=== PATIENT | male | born 1955 | race Caucasian/White ===

== ENCOUNTER 2017-02-05 09:34 | Inpatient (IN) | payer OTHER ==
[2017-02-05] VITALS (14 sets, daily range): BP systolic 131–145; BP diastolic 85–97; PULSE 63–91; RESP 12–23; TEMP 98.1–98.4; O2SAT 96–100
[~2017-02-05] VITALS: Ht 175.3 cm; Wt 68.7 kg
[2017-02-05] MEDS ORDERED: BUPR150XL PO (09:55)
--- NOTE | 2017-02-05 09:59 | PD ---
HPI Chief Complaint: Cardiac Complaint Time Seen by Provider: 09:44 Travel History International Travel<30 days: No Contact w/Intl Traveler<30days: No Traveled to known affect area: No History of Present Illness HPI This patient is critically ill. He woke up this morning feeling okay but then developed left upper chest pain and pressure. It lasted about 2 hours. Paramedics were called. They found him pale and diaphoretic and bradycardic in the 40s. Shortly thereafter he went into ventricular fibrillation. They shocked him at 120 J and he converted to a sinus rhythm. He did not require any further shocks. He arrives in a sinus rhythm. Symptoms are severe. Duration 2 hours. Arrhythmia alleviated by electricity. No exacerbating factors. He is a cigarette smoker. He denies cardiac history. PFSH Past Medical History Depression: Yes Heart Rhythm Problems: Yes Diminished Hearing: No Past Surgical History Surgical History: No Previous Surgery Social History Alcohol Use: Yes (1-2 mixed drinks/night) Tobacco Use: Yes (1 ppd) Substance Use: No Allergies-Medications (Allergen,Severity, Reaction): Coded Allergies: No Known Allergies (Unverified , 02/05/17) Reported Meds & Prescriptions Reported Meds & Active Scripts Active Reported Wellbutrin Xl 24 HR (Bupropion HCl) 150 Mg Tab 150 Mg PO DAILY Review of Systems General / Constitutional: No: Fever Eyes: No: Visual changes HENT: No: Headaches Cardiovascular: Positive: Chest Pain or Discomfort, Irregular Rhythm, Tachycardia, Syncope Respiratory: No: Shortness of Breath Gastrointestinal: No: Abdominal Pain Genitourinary: No: Dysuria Musculoskeletal: No: Pain Skin: No Rash Neurologic: Positive: Syncope, No: Weakness Psychiatric: No: Depression Endocrine: No: Polydipsia Hematologic/Lymphatic: No: Easy Bruising Physical Exam Narrative GENERAL: Well-nourished, well-developed patient in no apparent distress. SKIN: Focused skin assessment reveals no rash and nodules. Skin is Warm and dry. HEAD: Atraumatic. Normocephalic. EYES: Pupils equal and round. No scleral icterus. No injection or drainage. ENT: No nasal bleeding or discharge. Mucous membranes pink and moist. NECK: Trachea midline. No JVD. CARDIOVASCULAR: Regular rate and rhythm. No murmur appreciated. RESPIRATORY: No accessory muscle use. Clear to auscultation. Breath sounds equal bilaterally. GASTROINTESTINAL: Abdomen soft, non-tender, nondistended. Hepatic and splenic margins not palpable. MUSCULOSKELETAL: No obvious deformities. No clubbing. No cyanosis. No edema. NEUROLOGICAL: Awake and alert. No obvious cranial nerve deficits. Motor grossly within normal limits. Normal speech. PSYCHIATRIC: Appropriate mood and affect; insight and judgment normal. Data Data Last Documented VS Vital Signs Date Time Temp Pulse Resp B/P (MAP) Pulse Ox O2 Delivery O2 Flow Rate FiO2 02/05/17 11:45 74 12 132/85 (101) 100 Nasal Cannula 2.00 02/05/17 09:41 98.1 Orders Orders Electrocardiogram (02/05/17 09:47) Basic Metabolic Panel (Bmp) (02/05/17 09:47) Ckmb (Isoenzyme) Profile (02/05/17 09:47) Complete Blood Count With Diff (02/05/17 09:47) Magnesium (Mg) (02/05/17 09:47) Prothrombin Time / Inr (Pt) (02/05/17 09:47) Act Partial Throm Time (Ptt) (02/05/17 09:47) Troponin I (02/05/17 09:47) Chest, Single Ap (02/05/17 09:47) Ecg Monitoring (02/05/17 09:47) Iv Access Insert/Monitor (02/05/17 09:47) Oximetry (02/05/17 09:47) Oxygen Administration (02/05/17 09:47) Aspirin (Aspirin) (02/05/17 10:00) Sodium Chloride 0.9% Flush (Ns Flush) (02/05/17 10:00) Heparin Inj (Heparin Inj) (02/05/17 16:00) Heparin Inj (Heparin Inj) (02/05/17 16:00) Heparin-D5w 25,000 U/250 Ml (Heparin-D5w (02/05/17 10:00) Cbc No Diff, Includes Plts (02/08/17 06:00) Act Partial Throm Time (Ptt) (02/05/17 16:47) Occult Blood (Hemoccult) Stool (02/05/17 09:47) (Hub Use Only)Inp Phy Cons/Ref (02/05/17 ) Act Partial Throm Time (Ptt) (02/05/17 16:40) CKMB (02/05/17 09:46) CKMB% (02/05/17 09:46) Admit Order (Ed Use Only) (02/05/17 12:08) Admit Order (Ed Use Only) (02/05/17 12:19) Labs Laboratory Tests Test 02/05/17 09:46 White Blood Count 8.8 TH/MM3 Red Blood Count 4.69 MIL/MM3 Hemoglobin 16.8 GM/DL Hematocrit 48.9 % Mean Corpuscular Volume 104.2 FL Mean Corpuscular Hemoglobin 35.7 PG Mean Corpuscular Hemoglobin Concent 34.3 % Red Cell Distribution Width 13.6 % Platelet Count 134 TH/MM3 Mean Platelet Volume 9.3 FL Neutrophils (%) (Auto) 31.9 % Lymphocytes (%) (Auto) 57.6 % Monocytes (%) (Auto) 8.6 % Eosinophils (%) (Auto) 1.4 % Basophils (%) (Auto) 0.5 % Neutrophils # (Auto) 2.8 TH/MM3 Lymphocytes # (Auto) 5.1 TH/MM3 Monocytes # (Auto) 0.8 TH/MM3 Eosinophils # (Auto) 0.1 TH/MM3 Basophils # (Auto) 0.0 TH/MM3 CBC Comment AUTO DIFF Differential Comment AUTO DIFF CONFIRMED Platelet Estimate LOW Platelet Morphology Comment NORMAL Prothrombin Time 10.0 SEC Prothromb Time International Ratio 1.0 RATIO Activated Partial Thromboplast Time 23.2 SEC Blood Urea Nitrogen 13 MG/DL Creatinine 1.44 MG/DL Random Glucose 235 MG/DL Calcium Level 9.2 MG/DL Magnesium Level 2.2 MG/DL Sodium Level 139 MEQ/L Potassium Level 3.6 MEQ/L Chloride Level 103 MEQ/L Carbon Dioxide Level 22.0 MEQ/L Anion Gap 14 MEQ/L Estimat Glomerular Filtration Rate 50 ML/MIN Total Creatine Kinase 149 U/L Creatine Kinase MB 1.2 NG/ML Troponin I LESS THAN 0.02 NG/ML MDM Medical Decision Making Medical Screen Exam Complete: Yes Emergency Medical Condition: Yes Medical Record Reviewed: Yes Differential Diagnosis Acute FL, arrhythmia, V. fib, ischemic coronary disease Narrative Course I have reviewed the patient's electronic medical record. Patient is never been here before. No EKGs to compare. 2 IVs placed I placed him on a satellite project site monitor and he is in a sinus rhythm with a rare ectopic beat. No acute ST elevation on EKG which shows sinus rhythm Workup initiated I discussed with diamond finishing supervisor Dr. hensley. He does not recommend antiarrhythmics at this time. He recommends aspirin and heparin drip both of which we have initiated. I reviewed the EKG shows sinus rhythm without ectopy I reviewed the chest x-ray is normal Extended cardiac monitoring shows sinus rhythm with a rare ectopic beat CBC is normal Metabolic profile is normal other than mild hyperglycemia CK is normal Troponin is normal Coagulation studies are normal Case reviewed with hospitalist will admit to PSYCHIATRIC with cardiology consultation on heparin drip Critical Care Narrative Aggregate critical care time was 35 minutes. Time to perform other separately billable procedures was not included in the critical care time. My time did not include minutes spent treating any other patients simultaneously or on activities that did not directly contribute to the patient's treatment. The services I provided to this patient were to treat and/or prevent clinically significant deterioration that could result in: Cardiac arrhythmia, myocardial damage, cardiopulmonary arrest I provided critical care services requiring my management, as noted below: Chart data review, documentation time, medication orders and management, vital sign assessments/reviewing monitor data, ordering and reviewing lab tests, ordering and interpreting/reviewing x-rays and diagnostic studies, care of the patient and discussion of the patient with the admitting physicians. Diagnosis Primary Impression: Cardiac arrest with ventricular fibrillation Additional Impression: Chest pain Qualified Codes: R07.9 - Chest pain, unspecified Admitting Information Admitting Physician Requests: Evens Quinonez MD Feb 05, 2017 09:59
[2017-02-05] MEDS ORDERED: ASPIRIN 325 MG TAB PO ONE (10:00)
[2017-02-05] MEDS ORDERED: SODIUM CHLORIDE 0.9% FLUSH 10 ML FLUSH IVF PRN (10:00)
--- NOTE | 2017-02-05 10:20 | PD.CONS ---
HPI Consult Requested By Primary Care Physician Unknown History of Present Illness 61-year-old male with a past medical history depression who presented with chest pain and V. fib status post defibrillation in the field today. The patient states that he woke up this morning feeling well and had some coffee. He then developed some left back and left anterior chest pain. The pain was severe and lasted for a few hours. He reports associated shortness of breath, nausea, and sweating. Paramedics were called and they found the patient pale, diaphoretic, and bradycardic in the 40s. Shortly thereafter he went into V. fib and he received defibrillation with conversion to sinus rhythm. EKG and telemetry monitoring showed sinus rhythm with occasional PACs, no acute ischemic changes. The patient does admit that he's been having episodes of left -sided chest pain with no associated symptoms, lasting for a few minutes, however he does ride a bike for exercise and has not had any previous exertional symptoms. He denies any history of heart disease. He denies any family history of heart disease. He does smoke and drink daily. Review of Systems Negative except as stated in history of present illness Past Family Social History Allergies: Coded Allergies: No Known Allergies (Unverified , 02/05/17) Past Medical History Depression Reported Medications Reported Meds & Active Scripts Active Reported Wellbutrin Xl 24 HR (Bupropion HCl) 150 Mg Tab 150 Mg PO DAILY Active Ordered Medications Current Medications Medications (Trade) Dose Ordered Sig/Davon Route Start Time Stop Time Status Last Admin (NS Flush) 2 ml UNSCH PRN IVF 02/05/17 10:00 (Heparin Inj) 5,000 units UNSCH PRN IV 02/05/17 16:00 (Heparin Inj) 2,500 units UNSCH PRN IV 02/05/17 16:00 Heparin Sodium/ Dextrose 250 ml @ 8 mls/hr TITRATE PRN IV 02/05/17 10:00 Family History Denies family history of heart disease Social History Tobacco abuse Drinks one to 2 alcoholic beverages daily Denies any drug use Physical Exam Vital Signs Vital Signs Date Time Temp Pulse Resp B/P (MAP) Pulse Ox O2 Delivery O2 Flow Rate FiO2 02/05/17 10:05 100 Nasal Cannula 2.00 02/05/17 09:41 98.1 82 23 131/97 (108) 100 Non-Rebreather 15.00 Physical Exam GENERAL: Well-developed well-nourished. In no acute distress. NECK: No carotid bruits. No JVD. CARDIOVASCULAR: Regular rate and rhythm with occasional PACs. No murmur appreciated. RESPIRATORY: No accessory muscle use. Clear to auscultation. Breath sounds equal bilaterally. MUSCULOSKELETAL: No clubbing or cyanosis. No edema. NEUROLOGICAL: Awake and alert. Normal speech. Assessment and Plan Assessment and Plan 61-year-old male with a past medical history depression who presented with chest pain and V. fib status post defibrillation in the field Chest pain: Patient is currently stable. EKG with no ischemic changes. Troponins are pending. We'll pursue ischemic evaluation with cardiac catheterization, likely Tuesday. Continue heparin. V. fib s/p defibrillation: Currently sinus. Likely ischemic driven, hold off on antiarrhythmics at this time. Lonnie Torres Feb 05, 2017 10:20
--- NOTE | 2017-02-05 10:20 | RADRPT ---
EXAM DATE/TIME: 02/05/2017 10:10 [facility] COMPARISON: No previous studies available for comparison. INDICATIONS : Chest pain. MEDICAL HISTORY : Smoker. SURGICAL HISTORY : None. ENCOUNTER: Initial ACUITY: 1 day PAIN SCORE: 9/10 LOCATION: Left chest FINDINGS: A single view of the chest demonstrates the lungs to be symmetrically aerated without evidence of mas s, infiltrate or effusion. The cardiomediastinal contours are unremarkable. Osseous structures are intact. CONCLUSION: 1. No acute cardiopulmonary disease. Tony Gallo MD on February 05, 2017 at 10:18 Board Certified Radiologist. This report was verified electronically.
[2017-02-05 10:23] LABS: AUTOMATED NEUTROPHIL # 2.8 TH/MM3 (1.8-7.7); BASOPHIL % 0.5 % (0.0-2.0); EOSINOPHIL # 0.1 TH/MM3 (0-0.4); EOSINOPHIL % 1.4 % (0.0-4.0); HEMATOCRIT 48.9 % (39.0-51.0); LYMPH % 57.6 % (9.0-44.0); LYMPHOCYTE # 5.1 TH/MM3 (1.0-4.8); MEAN CELL VOLUME 104.2 FL (80.0-100.0); MEAN CORPUSCULAR HEMOGLOBIN 35.7 PG (27.0-34.0); MEAN CORPUSCULAR HGB CONC 34.3 % (32.0-36.0); MONO % 8.6 % (0.0-8.0); NEUT % 31.9 % (16.0-70.0); PLATELET COUNT 134 TH/MM3 (150-450); RED BLOOD COUNT 4.69 MIL/MM3 (4.50-5.90); RED CELL DISTRIBUTION WIDTH 13.6 % (11.6-17.2); WHITE BLOOD COUNT 8.8 TH/MM3 (4.0-11.0)
[2017-02-05 10:24] LABS: HEMO FLAGS AUTO DIFF
[2017-02-05 10:32] LABS: APTT (PATIENT) 23.2 SEC (24.3-30.1)
[2017-02-05] MEDS: HEPARIN-D5W 25,000 U/250 ML 250 ML IV PRN (10:35)
[2017-02-05 10:40] LABS: ANION GAP 14 MEQ/L (5-15); BLOOD UREA NITROGEN 13 MG/DL (7-18); CHLORIDE 103 MEQ/L (98-107); GLOMERULAR FILTRATION RATE 50 ML/MIN (>89); MAGNESIUM 2.2 MG/DL (1.5-2.5); POTASSIUM 3.6 MEQ/L (3.5-5.1); SODIUM (NA) 139 MEQ/L (136-145)
[2017-02-05 10:43] LABS: CREATINE KINASE 149 U/L (39-308)
[2017-02-05 10:46] LABS: PLATELET ESTIMATE SMEAR LOW (NORMAL); PLATELET MORPHOLOGY NORMAL (NORMAL); SCAN/DIFF AUTO DIFF CONFIRMED
[2017-02-05 10:56] LABS: CKMB 1.2 NG/ML (0.5-3.6)
--- NOTE | 2017-02-05 11:56 | HHI.HP ---
[facility] Unknown Admission Diagnosis Diagnoses: Chief Complaint: chest pain Travel History International Travel<30 Days: No Contact w/Intl Traveler <30 Da: No Traveled to Known Affected Are: No History of Present Illness 61-year-old male with a past medical history depression/anxiety who presented with chest pain and V. fib status post defibrillation in the field today. The patient states that he woke up this morning feeling well and had some coffee. He then developed some left back and left anterior chest pain. The pain was severe and lasted for a few hours. He reports associated shortness of breath, nausea, and sweating. Paramedics were called and they found the patient pale, diaphoretic, and bradycardic in the 40s. Shortly thereafter he went into V. fib and he received defibrillation with conversion to sinus rhythm. EKG and telemetry monitoring showed sinus rhythm with occasional PACs, no acute ischemic changes. The patient does admit that he's been having episodes of left -sided chest pain with no associated symptoms, lasting for a few minutes, however he does ride a bike for exercise and has not had any previous exertional symptoms. He denies any history of heart disease. He denies any family history of heart disease. He does smoke and drink daily. Patient also reports neck pain and muscle tenderness, asking for muscle relaxant. He is still having chest harvey however improved since he came to ER. No feve ro chills.No cough. No n/v/d/c. Says she has associated nausea and diaphoresis in the morning when chest pain started. First episode. Symptoms are moderate to severe and came to ER for further evaluation. Review of Systems Except as stated in HPI: all other systems reviewed are Neg Past Family Social History Past Medical History Depression Past Surgical History None Reported Medications Last Impressions Chest X-Ray 02/05/17 5804 Signed Impressions: Service Date/Time: Tuesday, February 05, 2017 10:10 - CONCLUSION: 1. No acute cardiopulmonary disease. Tony Gallo MD Allergies: Coded Allergies: No Known Allergies (Unverified , 02/05/17) Family History Healthy , no family history of heart disease Social History Tobacco abuse Drinks one to 2 alcoholic beverages daily Denies any drug use Physical Exam Vital Signs Vital Signs Date Time Temp Pulse Resp B/P (MAP) Pulse Ox O2 Delivery O2 Flow Rate FiO2 02/05/17 11:45 74 12 132/85 (101) 100 Nasal Cannula 2.00 02/05/17 10:05 100 Nasal Cannula 2.00 02/05/17 09:41 98.1 82 23 131/97 (108) 100 Non-Rebreather 15.00 Physical Exam GENERAL: This is a well-nourished, well-developed patient, in no apparent distress. SKIN: No rashes, ecchymoses or lesions. Cool and dry. HEAD: Atraumatic. Normocephalic. No temporal or scalp tenderness. EYES: Pupils equal round and reactive. Extraocular motions intact. No scleral icterus. No injection or drainage. ENT: Nose without bleeding, purulent drainage or septal hematoma. Throat without erythema, tonsillar hypertrophy or exudate. Uvula midline. Airway patent. NECK: Trachea midline. No JVD or lymphadenopathy. Supple, nontender, no meningeal signs. CARDIOVASCULAR: Regular rate and rhythm without murmurs, gallops, or rubs. RESPIRATORY: Clear to auscultation. Breath sounds equal bilaterally. No wheezes , rales, or rhonchi. GASTROINTESTINAL: Abdomen soft, non-tender, nondistended. No hepato-splenomegaly , or palpable masses. No guarding. MUSCULOSKELETAL: Tender neck muscle and shoulder. Extremities without clubbing, cyanosis, or edema. No joint tenderness, effusion, or edema noted. No calf tenderness. Negative Homans sign bilaterally. NEUROLOGICAL: Awake and alert. Cranial nerves II through XII intact. Motor and sensory grossly within normal limits. Five out of 5 muscle strength in all muscle groups. Normal speech. Laboratory Laboratory Tests Test 02/05/17 09:46 White Blood Count 8.8 Red Blood Count 4.69 Hemoglobin 16.8 Hematocrit 48.9 Mean Corpuscular Volume 104.2 Mean Corpuscular Hemoglobin 35.7 Mean Corpuscular Hemoglobin Concent 34.3 Red Cell Distribution Width 13.6 Platelet Count 134 Mean Platelet Volume 9.3 Neutrophils (%) (Auto) 31.9 Lymphocytes (%) (Auto) 57.6 Monocytes (%) (Auto) 8.6 Eosinophils (%) (Auto) 1.4 Basophils (%) (Auto) 0.5 Neutrophils # (Auto) 2.8 Lymphocytes # (Auto) 5.1 Monocytes # (Auto) 0.8 Eosinophils # (Auto) 0.1 Basophils # (Auto) 0.0 CBC Comment AUTO DIFF Differential Comment AUTO DIFF CONFIRMED Platelet Estimate LOW Platelet Morphology Comment NORMAL Prothrombin Time 10.0 Prothromb Time International Ratio 1.0 Activated Partial Thromboplast Time 23.2 Blood Urea Nitrogen 13 Creatinine 1.44 Random Glucose 235 Calcium Level 9.2 Magnesium Level 2.2 Sodium Level 139 Potassium Level 3.6 Chloride Level 103 Carbon Dioxide Level 22.0 Anion Gap 14 Estimat Glomerular Filtration Rate 50 Total Creatine Kinase 149 Creatine Kinase MB 1.2 Troponin I LESS THAN 0.02 Result Diagram: 02/05/1746 02/05/1746 Imaging Last Impressions Chest X-Ray 02/05/17 0947 Signed Impressions: Service Date/Time: Sunday, February 05, 2017 10:10 - CONCLUSION: 1. No acute cardiopulmonary disease. MD Cinthya Gomez VTE Risk Assessment Caprini VTE Risk Assessment: Mod/High Risk (score >= 2) Caprini Risk Assessment Model Point Value = 1 Point Value = 2 Point Value = 3 Point Value = 5 Age 41-60 Minor surgery BMI > 25 kg/m2 Swollen legs Varicose veins or History of unexplained or recurrent spontaneous Oral contraceptives or hormone replacement Sepsis (< 1 month) Serious lung disease, including pneumonia (< 1 month) Abnormal pulmonary function Acute myocardial infarction Congestive heart failure (< 1 month) History of inflammatory bowel disease Medical patient at bed rest Age 61-74 Arthroscopic surgery Major open surgery (> 45 min) Laparoscopic surgery (> 45 min) Malignancy Confined to bed (> 72 hours) Immobilizing plaster cast Central venous access Age >= 75 History of VTE Family history of VTE Factor V Leiden Prothrombin [id number] Lupus anticoagulant Anticardiolipin antibodies Elevated serum homocysteine Heparin-induced thrombocytopenia Other congenital or acquired thrombophilia Stroke (< 1 month) Elective arthroplasty Hip, pelvis, or leg fracture Acute spinal cord injury (< 1 month) Prophylaxis Regimen Total Risk Factor Score Risk Level Prophylaxis Regimen 0-1 Low Early ambulation 2 Moderate Order ONE of the following: *Sequential Compression Device (SCD) *Heparin 5000 units SQ BID 3-4 Higher Order ONE of the following medications: *Heparin 5000 units SQ TID *Enoxaparin/Lovenox 40 mg SQ daily (WT < 150 kg, CrCl > 30 mL/min) *Enoxaparin/Lovenox 30 mg SQ daily (WT < 150 kg, CrCl > 10-29 mL/min) *Enoxaparin/Lovenox 30 mg SQ BID (WT < 150 kg, CrCl > 30 mL/min) AND/OR *Sequential Compression Device (SCD) 5 or more Highest Order ONE of the following medications: *Heparin 5000 units SQ TID (Preferred with Epidurals) *Enoxaparin/Lovenox 40 mg SQ daily (WT < 150 kg, CrCl > 30 mL/min) *Enoxaparin/Lovenox 30 mg SQ daily (WT < 150 kg, CrCl > 10-29 mL/min) *Enoxaparin/Lovenox 30 mg SQ BID (WT < 150 kg, CrCl > 30 mL/min) AND *Sequential Compression Device (SCD) Assessment and Plan Assessment and Plan 61-year-old male with a past medical history depression who presented with chest pain and V. fib status post defibrillation in the field Chest pain: Patient is currently stable. EKG with no ischemic changes. Troponins normal x1 . Trend trops. . We'll pursue ischemic evaluation with cardiac catheterization, likely Tuesday per cardiology. Start heparin drip. Start morphine IV O2 supplement if need keep O2 sat > 94% V. fib s/p defibrillation: Currently sinus. Likely ischemic driven, hold off on antiarrhythmics at this time. Muscle spasm: Flexeril prn Depression/anxiety: Restart home meds. Give xanax prn for anxiety DVT ppx SCD/TEDs on heparin drip Code Status Full code Discussed Condition With Patient, nurse, ED physician Dr Saldana Physician Certification 2 Midnight Certification Type: Admission for Inpatient Services Order for Inpatient Services The services are ordered in accordance with Medicare regulations or non- Medicare payer requirements, as applicable. In the case of services not specified as inpatient-only, they are appropriately provided as inpatient services in accordance with the 2-midnight benchmark. Estimated LOS (days): 3 days is the estimated time the patient will need to remain in the hospital, assuming treatment plan goals are met and no additional complications. Post-Hospital Plan: Home Francy Lees MD Feb 05, 2017 11:56
[2017-02-05] MEDS ORDERED: SENNOSIDES 8.6 MG TAB PO PRN (13:00)
[2017-02-05] MEDS ORDERED: BISACODYL 10 MG SUPP RECTAL PRN (13:00)
[2017-02-05] MEDS ORDERED: ONDANSETRON HCL 4 MG/2 ML VIAL IVP PRN (13:00)
[2017-02-05] MEDS ORDERED: MAGNESIUM HYDROXIDE SUSP 30 ML CUP PO PRN (13:00)
[2017-02-05] MEDS ORDERED: NALOXONE HCL 0.4 MG/ML AMP IV PUSH PRN (13:00)
[2017-02-05] MEDS ORDERED: TEMAZEPAM 15 MG CAP PO PRN (13:00)
[2017-02-05] MEDS ORDERED: LACTULOSE SYRUP 20 GM/30 ML CUP PO PRN (13:00)
[2017-02-05] MEDS ORDERED: SODIUM CHLORIDE 0.9% FLUSH 10 ML FLUSH IV FLUSH PRN (13:00)
[2017-02-05] MEDS ORDERED: ACETAMINOPHEN 325 MG TAB PO PRN (13:00)
[2017-02-05] MEDS ORDERED: PILL SPLITTER OTHER PRN (13:15)
[2017-02-05] MEDS: CYCLOBENZAPRINE HCL 10 MG TAB PO PRN ×2 (15:46→23:35)
[2017-02-05] MEDS ORDERED: HEPARIN SODIUM - IV 10,000 UNITS/10 ML VIAL IV PRN ×2 (16:00)
[2017-02-05 18:27] LABS: APTT (PATIENT) 24.9 SEC (24.3-30.1)
[2017-02-05] MEDS: DOCUSATE SODIUM 50 MG/SENNA 8.6 MG TAB PO SCH (19:28)
[2017-02-05] MEDS: SODIUM CHLORIDE 0.9% FLUSH 10 ML FLUSH IV FLUSH SCH (19:28)
[2017-02-05] MEDS: ALPRAZolam 0.25 MG TAB PO PRN (19:30)
[2017-02-06] VITALS (24 sets, daily range): BP systolic 116–123; BP diastolic 68–88; PULSE 60–98; RESP 16–20; TEMP 97.6–98.3; O2SAT 96–98
[2017-02-06 00:44] LABS: APTT (PATIENT) 26.8 SEC (24.3-30.1)
[2017-02-06 06:29] LABS: AUTOMATED NEUTROPHIL # 4.5 TH/MM3 (1.8-7.7); BASOPHIL % 0.3 % (0.0-2.0); EOSINOPHIL # 0.2 TH/MM3 (0-0.4); EOSINOPHIL % 2.2 % (0.0-4.0); HEMATOCRIT 46.4 % (39.0-51.0); HEMO FLAGS DIFF FINAL; LYMPH % 31.9 % (9.0-44.0); LYMPHOCYTE # 2.7 TH/MM3 (1.0-4.8); MEAN CORPUSCULAR HEMOGLOBIN 35.8 PG (27.0-34.0); MEAN CORPUSCULAR HGB CONC 34.5 % (32.0-36.0); MONO % 11.3 % (0.0-8.0); NEUT % 54.3 % (16.0-70.0); PLATELET COUNT 144 TH/MM3 (150-450); RED BLOOD COUNT 4.46 MIL/MM3 (4.50-5.90); RED CELL DISTRIBUTION WIDTH 13.4 % (11.6-17.2); WHITE BLOOD COUNT 8.3 TH/MM3 (4.0-11.0)
[2017-02-06 06:45] LABS: APTT (PATIENT) 49.5 SEC (24.3-30.1)
[2017-02-06 07:03] LABS: ALT (GPT) 32 U/L (12-78); ANION GAP 7 MEQ/L (5-15); AST (GOT) 41 U/L (15-37); BLOOD UREA NITROGEN 13 MG/DL (7-18); CHLORIDE 104 MEQ/L (98-107); GLOMERULAR FILTRATION RATE 68 ML/MIN (>89); SODIUM (NA) 141 MEQ/L (136-145)
[2017-02-06 07:04] LABS: ALKALINE PHOSPHATASE 61 U/L (45-117); TOTAL BILIRUBIN ADULT 1.1 MG/DL (0.2-1.0)
[2017-02-06] MEDS: SODIUM CHLORIDE 0.9% FLUSH 10 ML FLUSH IV FLUSH SCH ×2 (08:50→19:39)
[2017-02-06] MEDS: ASPIRIN 325 MG TAB PO SCH (08:50)
[2017-02-06] MEDS: DOCUSATE SODIUM 50 MG/SENNA 8.6 MG TAB PO SCH ×2 (08:50→19:39)
[2017-02-06] MEDS: CYCLOBENZAPRINE HCL 10 MG TAB PO PRN ×2 (08:50→17:09)
[2017-02-06] MEDS: HEPARIN-D5W 25,000 U/250 ML 250 ML IV PRN (08:57)
--- NOTE | 2017-02-06 09:06 | PD.CARD.PN ---
Subjective Subjective Remarks Patient states that he has constant chest pain, except whenever he does not move , pain exacerbated by turning to his sides. No shortness of breath or palpitations. (Lonnie Torres) Objective Medications Current Medications Medications (Trade) Dose Ordered Sig/Davon Route Start Time Stop Time Status Last Admin (Heparin Inj) 5,000 units UNSCH PRN IV 02/05/17 16:00 02/05/17 21:22 (Heparin Inj) 2,500 units UNSCH PRN IV 02/05/17 16:00 02/06/17 01:32 Heparin Sodium/ Dextrose 250 ml @ 8 mls/hr TITRATE PRN IV 02/05/17 10:00 02/06/17 08:57 (NS Flush) 2 ml UNSCH PRN IV FLUSH 02/05/17 13:00 (NS Flush) 2 ml BID IV FLUSH 02/05/17 21:00 02/05/17 19:28 (Tylenol) 650 mg Q4H PRN PO 02/05/17 13:00 (Zofran Inj) 4 mg Q6H PRN IVP 02/05/17 13:00 (Restoril) 15 mg HS PRN PO 02/05/17 13:00 (Narcan Inj) 0.4 mg UNSCH PRN IV PUSH 02/05/17 13:00 (Ilana-Colace) 1 tab BID PO 02/05/17 21:00 02/06/17 08:50 (Milk Of Magnesia Liq) 30 ml Q12H PRN PO 02/05/17 13:00 (Senokot) 17.2 mg Q12H PRN PO 02/05/17 13:00 (Dulcolax Supp) 10 mg DAILY PRN RECTAL 02/05/17 13:00 (Lactulose Liq) 30 ml DAILY PRN PO 02/05/17 13:00 (Aspirin) 325 mg DAILY PO 02/06/17 09:00 02/06/17 08:50 (Morphine Inj) 2 mg Q4H PRN IV PUSH 02/05/17 13:00 (Flexeril) 5 mg Q8H PRN PO 02/05/17 13:00 02/06/17 08:50 (Xanax) 0.25 mg Q8H PRN PO 02/05/17 13:00 02/05/17 19:30 (Pill Splitter) 1 ea UNSCH PRN OTHER 02/05/17 13:15 Vital Signs / I&O Vital Signs Date Time Temp Pulse Resp B/P (MAP) Pulse Ox O2 Delivery O2 Flow Rate FiO2 02/06/17 08:16 75 02/06/17 07:37 Room Air 02/06/17 07:37 97.7 80 16 118/80 (93) 96 02/06/17 07:03 74 02/06/17 06:00 65 02/06/17 05:00 62 02/06/17 04:00 61 02/06/17 04:00 98.3 61 18 121/80 (94) 97 02/06/17 04:00 Room Air 02/06/17 03:00 60 02/06/17 02:00 63 02/06/17 01:00 73 02/06/17 00:00 Room Air 02/06/17 00:00 74 02/06/17 00:00 98.1 74 18 123/88 (100) 96 02/05/17 23:00 69 02/05/17 22:00 68 02/05/17 21:00 70 02/05/17 20:00 98.4 63 20 131/88 (102) 96 02/05/17 20:00 Room Air 02/05/17 20:00 63 02/05/17 18:35 84 02/05/17 17:08 77 02/05/17 16:25 90 02/05/17 16:23 91 02/05/17 15:33 02/05/17 15:33 98.2 74 16 145/97 (113) 97 02/05/17 15:19 72 02/05/17 15:06 78 19 134/88 (103) 100 Room Air 02/05/17 13:04 100 Nasal Cannula 2.50 02/05/17 11:45 74 12 132/85 (101) 100 Nasal Cannula 2.00 02/05/17 10:05 100 Nasal Cannula 2.00 02/05/17 09:41 98.1 82 23 131/97 (108) 100 Non-Rebreather 15.00 I/O 02/05/17 02/05/17 02/05/17 02/06/17 02/06/17 02/06/17 07:00 15:00 23:00 07:00 15:00 23:00 Intake Total 358 ml 580 ml Output Total 700 ml Balance 358 ml -120 ml Intake Oral 358 ml 480 ml IV Total 100 ml Output Urine Total 700 ml # Bowel Movements 0 Physical Exam GENERAL: Well-developed well-nourished. In no acute distress. NECK: No carotid bruits. No JVD. CARDIOVASCULAR: Regular rate and rhythm. No murmur appreciated. RESPIRATORY: No accessory muscle use. Clear to auscultation. Breath sounds equal bilaterally. MUSCULOSKELETAL: No clubbing or cyanosis. No edema. NEUROLOGICAL: Awake and alert. Normal speech. Laboratory Laboratory Tests Test 02/05/17 09:46 02/05/17 17:28 02/05/17 18:10 02/05/17 23:50 White Blood Count 8.8 TH/MM3 Red Blood Count 4.69 MIL/MM3 Hemoglobin 16.8 GM/DL Hematocrit 48.9 % Mean Corpuscular Volume 104.2 FL Mean Corpuscular Hemoglobin 35.7 PG Mean Corpuscular Hemoglobin Concent 34.3 % Red Cell Distribution Width 13.6 % Platelet Count 134 TH/MM3 Mean Platelet Volume 9.3 FL Neutrophils (%) (Auto) 31.9 % Lymphocytes (%) (Auto) 57.6 % Monocytes (%) (Auto) 8.6 % Eosinophils (%) (Auto) 1.4 % Basophils (%) (Auto) 0.5 % Neutrophils # (Auto) 2.8 TH/MM3 Lymphocytes # (Auto) 5.1 TH/MM3 Monocytes # (Auto) 0.8 TH/MM3 Eosinophils # (Auto) 0.1 TH/MM3 Basophils # (Auto) 0.0 TH/MM3 CBC Comment AUTO DIFF Differential Comment AUTO DIFF CONFIRMED Platelet Estimate LOW Platelet Morphology Comment NORMAL Prothrombin Time 10.0 SEC Prothromb Time International Ratio 1.0 RATIO Activated Partial Thromboplast Time 23.2 SEC 24.9 SEC 26.8 SEC Blood Urea Nitrogen 13 MG/DL Creatinine 1.44 MG/DL Random Glucose 235 MG/DL Calcium Level 9.2 MG/DL Magnesium Level 2.2 MG/DL Sodium Level 139 MEQ/L Potassium Level 3.6 MEQ/L Chloride Level 103 MEQ/L Carbon Dioxide Level 22.0 MEQ/L Anion Gap 14 MEQ/L Estimat Glomerular Filtration Rate 50 ML/MIN Total Creatine Kinase 149 U/L Creatine Kinase MB 1.2 NG/ML Troponin I LESS THAN 0.02 NG/ML 0.70 NG/ML 0.37 NG/ML Test 02/06/17 06:00 White Blood Count 8.3 TH/MM3 Red Blood Count 4.46 MIL/MM3 Hemoglobin 16.0 GM/DL Hematocrit 46.4 % Mean Corpuscular Volume 104.0 FL Mean Corpuscular Hemoglobin 35.8 PG Mean Corpuscular Hemoglobin Concent 34.5 % Red Cell Distribution Width 13.4 % Platelet Count 144 TH/MM3 Mean Platelet Volume 9.4 FL Neutrophils (%) (Auto) 54.3 % Lymphocytes (%) (Auto) 31.9 % Monocytes (%) (Auto) 11.3 % Eosinophils (%) (Auto) 2.2 % Basophils (%) (Auto) 0.3 % Neutrophils # (Auto) 4.5 TH/MM3 Lymphocytes # (Auto) 2.7 TH/MM3 Monocytes # (Auto) 0.9 TH/MM3 Eosinophils # (Auto) 0.2 TH/MM3 Basophils # (Auto) 0.0 TH/MM3 CBC Comment DIFF FINAL Differential Comment Activated Partial Thromboplast Time 49.5 SEC Blood Urea Nitrogen 13 MG/DL Creatinine 1.09 MG/DL Random Glucose 160 MG/DL Total Protein 6.7 GM/DL Albumin 3.3 GM/DL Calcium Level 8.9 MG/DL Alkaline Phosphatase 61 U/L Aspartate Amino Transf (AST/SGOT) 41 U/L Alanine Aminotransferase (ALT/SGPT) 32 U/L Total Bilirubin 1.1 MG/DL Sodium Level 141 MEQ/L Potassium Level 4.0 MEQ/L Chloride Level 104 MEQ/L Carbon Dioxide Level 30.0 MEQ/L Anion Gap 7 MEQ/L Estimat Glomerular Filtration Rate 68 ML/MIN Imaging Last 24 hours Impressions Chest X-Ray 02/05/17 0947 Signed Impressions: Service Date/Time: Sunday, February 05, 2017 10:10 - CONCLUSION: 1. No acute cardiopulmonary disease. Tony Gallo MD (Lonnie Torres) Assessment and Plan Assessment and Plan 61-year-old male with a past medical history depression who presented with chest pain and V. fib status post defibrillation in the field NSTEMI: EKG with no ischemic changes. Troponins 0.02, 0.70, 0.37. Plan for ischemic evaluation with cardiac catheterization, likely Tuesday. Continue heparin. V. fib s/p defibrillation: Currently sinus, telemetry unremarkable overnight. Likely ischemic driven, hold off on antiarrhythmics at this time. (Lonnie Torres) Assessment and Plan [facility] tommorrow (Bishop Quintana MD) Lonnie Torres Feb 06, 2017 09:06 Bishop Quintana MD Feb 06, 2017 10:17
--- NOTE | 2017-02-06 10:02 | HHI.PR ---
Subjective Remarks The patient is in the bed. He still has chest pain especially with movement. No shortness of breath diaphoresis or nausea. No abdominal pain, vomiting, diarrhea or constipation. Family also at bedside patient and family with multiple questions all uncertain best of my ability. Objective Vitals Vital Signs Date Time Temp Pulse Resp B/P (MAP) Pulse Ox O2 Delivery O2 Flow Rate FiO2 02/06/17 09:08 75 02/06/17 08:16 75 02/06/17 07:37 Room Air 02/06/17 07:37 97.7 80 16 118/80 (93) 96 02/06/17 07:03 74 02/06/17 06:00 65 02/06/17 05:00 62 02/06/17 04:00 61 02/06/17 04:00 98.3 61 18 121/80 (94) 97 02/06/17 04:00 Room Air 02/06/17 03:00 60 02/06/17 02:00 63 02/06/17 01:00 73 02/06/17 00:00 Room Air 02/06/17 00:00 74 02/06/17 00:00 98.1 74 18 123/88 (100) 96 02/05/17 23:00 69 02/05/17 22:00 68 02/05/17 21:00 70 02/05/17 20:00 98.4 63 20 131/88 (102) 96 02/05/17 20:00 Room Air 02/05/17 20:00 63 02/05/17 18:35 84 02/05/17 17:08 77 02/05/17 16:25 90 02/05/17 16:23 91 02/05/17 15:33 02/05/17 15:33 98.2 74 16 145/97 (113) 97 02/05/17 15:19 72 02/05/17 15:06 78 19 134/88 (103) 100 Room Air 02/05/17 13:04 100 Nasal Cannula 2.50 02/05/17 11:45 74 12 132/85 (101) 100 Nasal Cannula 2.00 02/05/17 10:05 100 Nasal Cannula 2.00 I/O 02/05/17 02/05/17 02/05/17 02/06/17 02/06/17 02/06/17 07:00 15:00 23:00 07:00 15:00 23:00 Intake Total 358 ml 580 ml Output Total 700 ml Balance 358 ml -120 ml Intake Oral 358 ml 480 ml IV Total 100 ml Output Urine Total 700 ml # Bowel Movements 0 Result Diagram: 02/06/17 0600 02/06/17 0600 Imaging Last Impressions Chest X-Ray 02/05/17 0906 Signed Impressions: Service Date/Time: Sunday, February 05, 2017 10:10 - CONCLUSION: 1. No acute cardiopulmonary disease. Tony Gallo MD Objective Remarks GENERAL: This is a well-nourished, well-developed patient, in no apparent distress. CARDIOVASCULAR: Regular rate and rhythm without murmurs, gallops, or rubs. RESPIRATORY: Clear to auscultation. Breath sounds equal bilaterally. No wheezes , rales, or rhonchi. GASTROINTESTINAL: Abdomen soft, non-tender, nondistended. No hepato-splenomegaly , or palpable masses. No guarding. MUSCULOSKELETAL: Tender neck muscle and shoulder. Extremities without clubbing, cyanosis, or edema. No joint tenderness, effusion, or edema noted. No calf tenderness. Negative Homans sign bilaterally. NEUROLOGICAL: Awake and alert. Cranial nerves II through XII intact. Motor and sensory grossly within normal limits. Five out of 5 muscle strength in all muscle groups. Normal speech. A/P Assessment and Plan 61-year-old male with a past medical history depression who presented with chest pain and V. fib status post defibrillation in the field Chest pain: Patient is currently stable. EKG with no ischemic changes. Troponin 0.02 --> 0.7 --> 0.37 . Ischemic evaluation with cardiac catheterization, likely Tuesday per cardiology. Continue heparin drip. On morphine IV O2 supplement if need keep O2 sat > 94% Cardiology Dr Minor appreciate recommendations V. fib s/p defibrillation: Currently sinus. Likely ischemic driven, hold off on antiarrhythmics at this time. MARY: Cr 1.4 on admission. Monitor kidney function. Cr improving. Muscle spasm: Flexeril prn Depression/anxiety: Restart home meds. Give xanax prn for anxiety Tobacco use 1PPD. Counselled. Xanax for withdrawals DVT ppx SCD/TEDs on heparin drip Code Status Full code Discussed Condition With Patient, nurse, family at bedside Cosma,Francy MD Feb 06, 2017 10:02
[2017-02-06] MEDS: ALPRAZolam 0.25 MG TAB PO PRN ×2 (11:46→19:39)
--- NOTE | 2017-02-06 12:46 | EKG ---
Date Performed: 02/05/2017 Time Performed: 09:39:54 PTAGE: 61 years EKG: Sinus rhythm WITH OCCASIONAL SUPRAVENTRICULAR PREMATURE COMPLEXES BORDERLINE ECG NO PREVIOUS TRACING DOCTOR: Kye Boyd Interpretating Date/Time 02/06/2017 12:45:51
--- NOTE | 2017-02-06 12:48 | EKG ---
Date Performed: 02/05/2017 Time Performed: 22:10:18 PTAGE: 61 years EKG: Sinus rhythm Normal ECG PREVIOUS TRACING 02/05/17 Compared to prior tracing no significant change DOCTOR: Kye Boyd Interpretating Date/Time 02/06/2017 12:47:58
--- NOTE | 2017-02-06 12:48 | EKG ---
Date Performed: 02/05/2017 Time Performed: 16:54:02 PTAGE: 61 years EKG: Sinus rhythm . Normal ECG PREVIOUS TRACING : 02/05/2017 09.39 Since previous tracing, PACs no longer present. DOCTOR: Kye Boyd Interpretating Date/Time 02/06/2017 12:47:28
[2017-02-06 13:46] LABS: APTT (PATIENT) 76.6 SEC (24.3-30.1)
[2017-02-07] VITALS (29 sets, daily range): BP systolic 97–116; BP diastolic 68–82; PULSE 58–93; RESP 16–18; TEMP 97.8–98.6; O2SAT 95–97
[2017-02-07] MEDS: CYCLOBENZAPRINE HCL 10 MG TAB PO PRN ×2 (00:59→20:34)
--- NOTE | 2017-02-07 07:32 | PD.CARD.PN ---
Subjective Subjective Remarks No chest pain, shortness breath, or palpitations. Patient has been having back pain that is improved with cyclobenzaprine. For left heart catheterization today. Objective Medications Current Medications Medications (Trade) Dose Ordered Sig/Davon Route Start Time Stop Time Status Last Admin (Heparin Inj) 5,000 units UNSCH PRN IV 02/05/17 16:00 02/05/17 21:22 (Heparin Inj) 2,500 units UNSCH PRN IV 02/05/17 16:00 02/06/17 01:32 Heparin Sodium/ Dextrose 250 ml @ 8 mls/hr TITRATE PRN IV 02/05/17 10:00 02/06/17 08:57 (NS Flush) 2 ml UNSCH PRN IV FLUSH 02/05/17 13:00 (NS Flush) 2 ml BID IV FLUSH 02/05/17 21:00 02/06/17 19:39 (Tylenol) 650 mg Q4H PRN PO 02/05/17 13:00 (Zofran Inj) 4 mg Q6H PRN IVP 02/05/17 13:00 (Restoril) 15 mg HS PRN PO 02/05/17 13:00 (Narcan Inj) 0.4 mg UNSCH PRN IV PUSH 02/05/17 13:00 (Ilana-Colace) 1 tab BID PO 02/05/17 21:00 02/06/17 08:50 (Milk Of Magnesia Liq) 30 ml Q12H PRN PO 02/05/17 13:00 (Senokot) 17.2 mg Q12H PRN PO 02/05/17 13:00 (Dulcolax Supp) 10 mg DAILY PRN RECTAL 02/05/17 13:00 (Lactulose Liq) 30 ml DAILY PRN PO 02/05/17 13:00 (Aspirin) 325 mg DAILY PO 02/06/17 09:00 02/06/17 08:50 (Morphine Inj) 2 mg Q4H PRN IV PUSH 02/05/17 13:00 (Flexeril) 5 mg Q8H PRN PO 02/05/17 13:00 02/07/17 00:59 (Xanax) 0.25 mg Q8H PRN PO 02/05/17 13:00 02/06/17 19:39 (Pill Splitter) 1 ea UNSCH PRN OTHER 02/05/17 13:15 Vital Signs / I&O Vital Signs Date Time Temp Pulse Resp B/P (MAP) Pulse Ox O2 Delivery O2 Flow Rate FiO2 02/07/17 06:00 64 02/07/17 05:00 61 02/07/17 04:00 Room Air 02/07/17 04:00 60 02/07/17 04:00 98.1 60 18 110/80 (90) 97 02/07/17 03:00 63 02/07/17 02:00 62 02/07/17 01:00 60 02/07/17 00:00 98.0 65 18 110/76 (87) 97 02/07/17 00:00 65 02/06/17 23:00 69 02/06/17 22:00 63 02/06/17 21:00 69 02/06/17 20:00 97.6 68 20 116/68 (84) 98 02/06/17 20:00 68 02/06/17 20:00 Room Air 02/06/17 16:12 80 02/06/17 15:04 97.6 71 16 119/78 (92) 98 02/06/17 15:00 70 02/06/17 14:12 98 02/06/17 13:40 78 02/06/17 12:00 82 02/06/17 11:41 98.2 68 16 117/81 (93) 97 02/06/17 11:00 71 02/06/17 10:00 85 02/06/17 09:08 75 02/06/17 08:16 75 02/06/17 07:37 Room Air 02/06/17 07:37 97.7 80 16 118/80 (93) 96 I/O 02/06/17 02/06/17 02/06/17 02/07/17 02/07/17 02/07/17 07:00 15:00 23:00 07:00 15:00 23:00 Intake Total 580 ml 1050 ml 110 ml Output Total 700 ml 400 ml 600 ml Balance -120 ml 650 ml -490 ml Intake Oral 480 ml 1050 ml IV Total 100 ml 110 ml Output Urine Total 700 ml 400 ml 600 ml # Voids 3 # Bowel Movements 0 0 0 Physical Exam GENERAL: Well-developed well-nourished. In no acute distress. NECK: No carotid bruits. No JVD. CARDIOVASCULAR: Regular rate and rhythm. No murmur appreciated. RESPIRATORY: No accessory muscle use. Clear to auscultation. Breath sounds equal bilaterally. MUSCULOSKELETAL: No clubbing or cyanosis. No edema. NEUROLOGICAL: Awake and alert. Normal speech. Laboratory Laboratory Tests Test 02/06/17 13:20 Activated Partial Thromboplast Time 76.6 SEC Imaging Last Impressions Chest X-Ray 02/05/17 0988 Signed Impressions: Service Date/Time: Sunday, February 05, 2017 10:10 - CONCLUSION: 1. No acute cardiopulmonary disease. Tony Gallo MD Assessment and Plan Assessment and Plan 61-year-old male with a past medical history depression who presented with chest pain and V. fib status post defibrillation in the field NSTEMI: EKG with no ischemic changes. Troponins 0.02, 0.70, 0.37. Plan for ischemic evaluation with cardiac catheterization today. Continue heparin for now. V. fib s/p defibrillation: Currently sinus. Likely ischemic driven, hold off on antiarrhythmics at this time. Lonnie Torres Feb 07, 2017 07:32
[2017-02-07 07:47] LABS: APTT (PATIENT) 63.9 SEC (24.3-30.1)
[2017-02-07] MEDS: ASPIRIN 325 MG TAB PO SCH (08:45)
[2017-02-07] MEDS: DOCUSATE SODIUM 50 MG/SENNA 8.6 MG TAB PO SCH ×2 (08:46→20:34)
[2017-02-07] MEDS: SODIUM CHLORIDE 0.9% FLUSH 10 ML FLUSH IV FLUSH SCH ×2 (08:46→20:34)
[2017-02-07] MEDS: HEPARIN-D5W 25,000 U/250 ML 250 ML IV PRN (08:54)
--- NOTE | 2017-02-07 13:13 | HHI.PR ---
Subjective Remarks Still with pain in his chest, however improved some. No diaphoresis, sob, palpitations. No fever or chills. No n/v/d/c. Objective Vitals Vital Signs Date Time Temp Pulse Resp B/P (MAP) Pulse Ox O2 Delivery O2 Flow Rate FiO2 02/07/17 11:15 98.6 73 18 112/82 (92) 96 02/07/17 10:01 58 02/07/17 09:00 68 02/07/17 08:45 97 Room Air 02/07/17 08:45 98.0 68 18 116/82 (93) 97 02/07/17 08:00 66 02/07/17 07:00 76 02/07/17 06:00 64 02/07/17 05:00 61 02/07/17 04:00 Room Air 02/07/17 04:00 60 02/07/17 04:00 98.1 60 18 110/80 (90) 97 02/07/17 03:00 63 02/07/17 02:00 62 02/07/17 01:00 60 02/07/17 00:00 98.0 65 18 110/76 (87) 97 02/07/17 00:00 65 02/06/17 23:00 69 02/06/17 22:00 63 02/06/17 21:00 69 02/06/17 20:00 97.6 68 20 116/68 (84) 98 02/06/17 20:00 68 02/06/17 20:00 Room Air 02/06/17 16:12 80 02/06/17 15:04 97.6 71 16 119/78 (92) 98 02/06/17 15:00 70 02/06/17 14:12 98 02/06/17 13:40 78 I/O 02/06/17 02/06/17 02/06/17 02/07/17 02/07/17 02/07/17 07:00 15:00 23:00 07:00 15:00 23:00 Intake Total 580 ml 1050 ml 110 ml Output Total 700 ml 400 ml 600 ml Balance -120 ml 650 ml -490 ml Intake Oral 480 ml 1050 ml IV Total 100 ml 110 ml Output Urine Total 700 ml 400 ml 600 ml # Voids 3 # Bowel Movements 0 0 0 Result Diagram: 02/06/17 0600 02/06/17 0600 Imaging Last Impressions Chest X-Ray 02/05/17 0960 Signed Impressions: Service Date/Time: Sunday, February 05, 2017 10:10 - CONCLUSION: 1. No acute cardiopulmonary disease. Tony Gallo MD Objective Remarks GENERAL: This is a well-nourished, well-developed patient, in no apparent distress. CARDIOVASCULAR: Regular rate and rhythm without murmurs, gallops, or rubs. RESPIRATORY: Clear to auscultation. Breath sounds equal bilaterally. No wheezes , rales, or rhonchi. GASTROINTESTINAL: Abdomen soft, non-tender, nondistended. No hepato-splenomegaly , or palpable masses. No guarding. MUSCULOSKELETAL: Tender neck muscle and shoulder. Extremities without clubbing, cyanosis, or edema. No joint tenderness, effusion, or edema noted. No calf tenderness. Negative Homans sign bilaterally. NEUROLOGICAL: Awake and alert. Cranial nerves II through XII intact. Motor and sensory grossly within normal limits. Five out of 5 muscle strength in all muscle groups. Normal speech. A/P Assessment and Plan 61-year-old male with a past medical history depression who presented with chest pain and V. fib status post defibrillation in the field Chest pain: Patient is currently stable. EKG with no ischemic changes. Troponin 0.02 --> 0.7 --> 0.37 . Ischemic evaluation with cardiac catheterization, likely Tuesday per cardiology. Continue heparin drip. On morphine IV O2 supplement if need keep O2 sat > 94% Cardiology Dr Quintana appreciate recommendations V. fib s/p defibrillation: Currently sinus. Likely ischemic driven, hold off on antiarrhythmics at this time. MARY: Cr 1.4 on admission. Monitor kidney function. Cr improving. Muscle spasm: Flexeril prn Depression/anxiety: Restart home meds. Give xanax prn for anxiety Tobacco use 1PPD. Counselled. Xanax for withdrawals DVT ppx SCD/TEDs on heparin drip Code Status Full code Discussed Condition With Patient, nurse, Lonnie KHAN cardiology team DC plan: Plan for cardiac cath by Dr Quintana today Francy Lees MD Feb 07, 2017 13:13
[2017-02-07] MEDS ORDERED: MIDAZOLAM HCL 2 MG/2 ML VIAL ONE (14:35)
[2017-02-07] MEDS ORDERED: HEPARIN-NS/PF INJ 1,000 ML ONE ×2 (14:35→15:49)
[2017-02-07] MEDS ORDERED: HEPARIN-NS/PF INJ 500 ML ONE (14:36)
[2017-02-07] MEDS ORDERED: MISC INFORMATION XX ONE (15:15)
[2017-02-07] MEDS ORDERED: BACITRACIN OINT 0.9 GM PKT TOP ONE (15:15)
--- NOTE | 2017-02-07 15:20 | CATHPROC ---
[facility] HIS Report Study Information Study Number Admission Scheduled Start Study Start [id number] Feb 05 2017 12:16PM 02/07/2017 Feb 07 2017 2:36PM [place] Service Cardiac Catheterization Admit Source Facility Department Emergency department [facility] - Social Studies Teacher Physician and Clinical Staff Initial Bishop Thacker Web Marketing Specialist Oscar Sibley RN Recorder Susu Hilliard,TRANSMISSION DESIGN ENGINEER TECH2 Scrub Paz Beltran,RT(R) (BS) Procedures Performed Procedure Location (Site) Vessel Name Coronary Angiograms LCA Left Coronary Coronary Angiograms RCA Right Coronary Equipment Time Geospatial Technician Description Size Mfg Part Number Used/Scraped TRANSDUCER, TRUWAVE [id number] 14:37 GUNTER DRAKE * Used W/STOCKCOCK *[id number] *[id number] *[id number] 14:37 Arch[employer] INDUSTRIES PACK, CCL CUSTOM * Used *[id number] 14:37 Helijia SUPPORT, ARTERIAL ADULT 09665 *[id number] Used [id number] 14:37 Archivas PACER PEN, SKIN DUAL W/ RULER * Used *[id number] BAND, RADIAL COMPRESSION TR [id number] 14:59 eSoft MEDICAL 24CM Used SHORT 24 *[id number] SHEATH, FR6 RADIAL PRELUDE 14:37 [employer] FR 6 [id number] Used EASE 11CM [id number] 14:37 [employer] WIRE, EXCHANGE 260CM 3MMJ 260CM Used *[id number] 14:37 NYCOMED OMNIPAQUE, 350 MG, 150ML 150ML [id number] Used [id number] 14:37 BRADY MEDICAL BLANKET,WARM AIR CCL * Used *[id number] History: Allergies Allergy Reaction No Known Allergies History: Risk Factors Family History of Hypertension Dyslipidemia Previous ME Previous Heart Failure Premature CAD No No No No No Prior Valve Prior PCI Prior CABG Surgery No No No Cerebrovascular Peripheral Artery Chronic Lung On Dialysis Diabetes Disease Disease Disease No No No No No History: Symptoms/Diagnosis Selection Items Chest pain SOB History: Stress Tests Stress or Imaging Studies Performed No History: Other Disease Selection Items Depression History: Other Current Smoker Method Packs a Day Years Used Pack Years Yes Cigarettes 1 30 30 Labs Hgb (g/dl) Hct (%) RBC (MIL/MM3) WBC (l/cumm) Platelets (thousands) 11.60-17.00 35.00-51.00 4.00-5.90 4.00-11.00 150.00-450.00 16.0 46.4 4.4 8.3 144 Glucose (mg/dl) BUN (mg/dl) Creatinine (mg/dl) BUN:Creatinine (1:x) 74.00-106.00 7.00-18.00 0.50-1.30 10.00-20.00 160 13 1.0 13 Na (meq/l) K (meq/l) Cl (meq/l) CO2 (mmol/L) Ca (mg/dl) 136.00-145.00 3.50-5.10 98.00-107.00 21.00-32.00 8.50-10.10 141 4 104 30 8.9 PT (sec) PTT (sec) INR (PTT:PT) 9.80-11.60 24.30-30.10 0.90-1.10 10 63.9 1 Troponin I (ng/ml) CPK (u/l) CPK-MB (ng/ML) 0.02-0.05 26.00-308.00 0.50-3.60 0.37 149 1.2 Medication Medication Total Dose (Bolus/Oral) Medication Total Dosage/Unit 1% XYLOCAINE 20 mL FENTANYL 50 mcg HEPARIN 3000 units NTG (IC) 200 mcg VERSED 2 mg Medications (Bolus/Oral) Medication Time Given Dosage/Unit Administered By Reason 1% XYLOCAINE 02/07/2017 2:47:18 PM 20 mL Bishop Quintana Patient arrived on 20 mL 1% XYLOCAINE given by Bishop Quintana in Right Radial via Subcutaneous. VERSED 02/07/2017 2:47:32 PM 2 mg Oscar Sibley 2 mg VERSED given in lab by Oscar Sibley RN in Left Antecubital via Peripheral IV. Ordered by Bishop Sorto. FENTANYL 02/07/2017 2:47:43 PM 50 mcg Oscar Sibley 50 mcg FENTANYL given in lab by Oscar Sibley RN in Left Antecubital via Peripheral IV. Ordered by Bishop Quintana. HEPARIN 02/07/2017 2:50:02 PM 3000 units Oscar Sibley 3000 units HEPARIN given in lab by Oscar Sibley RN in Left Antecubital via Peripheral IV. Ordered by Bishop Quintana. NTG (IC) 02/07/2017 2:50:15 PM 200 mcg Bishop Quintana 200 mcg NTG (IC) given in lab by Bishop Quintana via Intra-arterial. Ordered by Bishop Quintana. Medication (Drip) Medication Time Given Dosage/Unit Concentration/Unit Diluent (ml) Solution IV Solutions 02/07/2017 2:40:10 PM 0 mL (IV) 1000 NaCl .9 Patient arrived on IV Solutions in Left Antecubital via Peripheral IV. Pump/Drip Flow = 20 ml/hr usin g NaCl .9. Initial Case Assessment Cardiovascular HR Rhythm NIBP Chest Pain 73 sr 136/83 0 Circulatory - Right Pulses Dorsalis Pedis Femoral Radial 2 2 2 Scale (0,1,2,3,4,d) Scale (0,1,2,3,4,d) Neurological State Oriented to time-place- Alert Moves all extremities person Respiration - General Respiration Rate SpO2 (%) (B/min) 18 98 Final Case Assessment Cardiovascular HR Rhythm NIBP Chest Pain 71 sr 107/80 0 Circulatory - Right Pulses Dorsalis Pedis Femoral Radial 2 2 2 Scale (0,1,2,3,4,d) Scale (0,1,2,3,4,d) Neurological State Oriented to time-place- Alert Moves all extremities person Respiration - General Respiration Rate SpO2 (%) (B/min) 16 93 Chronological Log Time Study Chronological Log 14:24:16 Patient arrived via Bed. 14:24:21 Patient Name, D.O.B, / Armband Verified By R.N. 14:30:28 Pre-op and post- op instructions given; patient acknowledges understanding of instructions. Vitals capture started with the following parameters, Patient=Adult, Interval=5 min, Initial Pr tbvwdl=395 mmHg, 14:36:13 Deflation Rate=5 mmHg, Cuff placed on Left Arm 14:36:39 Verbal Stimulation=2 Physical Stimulation=2 Airway=2 Respiration=2 TOTAL=8. (0=absent, 1=li mited, 2=present) 14:36:46 HR=68 bpm, LXDS=173/85 mmhg, SpO2=97 %, Resp=16 B/min 14:37:09 Reference ECG taken 14:39:06 Presedation assessment performed by Social Studies Teacher RN. 14:39:07 Patient has been NPO for More than 6Hrs. 14:39:08 Skin Breakdown-bruising noted in RAC area, warm and swollen in appearance. 14:39:09 Alee Prominences Protected 14:39:12 A # 18 IV was noted in the Antecubital (left). Grade = patent 14:40:10 Patient arrived on IV Solutions in Left Antecubital via Peripheral IV. Pump/Drip Flow = 20 ml/hr using NaCl .9. 14:41:43 UAVP=487/83 mmhg, SpO2=96.0 %, Resp=16 B/min 14:41:45 Right groin and right groin prepped with 2% chlorhexidine, and draped after a 3 min. waitin g time. 14:42:55 History and physical on the chart or being dictated. Assessment: Initial Case, HR=73 BPM, Rhythm=sr, LJGM=743/83 mmhg, Chest Pain=0 Right Pulses: Norris Ped=2, Femoral=2, Radial=2 14:42:59 Neurological: State=Alert, Ox3, DSOUZA Respiration: Resp=18 B/min, SpO2=98 % 14:43:46 MD arrived. 14:46:16 Pressure channel 1 zeroed. 14:46:44 HR=73 bpm, AYJQ=512/93 mmhg, SpO2=96 %, Resp=10 B/min, Pain=0, Merrill=2 Time Out. Correct patient, correct procedure, correct physician, power injector loaded, or not loaded with contrast with 14:47:09 surgical team present. Time Out Concurred by MD and individual staff in procedure. 14:47:16 Case Start 14:47:18 Patient arrived on 20 mL 1% XYLOCAINE given by Bishop Quintana in Right Radial via Subcutane ous. 14:47:32 2 mg VERSED given in lab by Oscar Sibley, RN in Left Antecubital via Peripheral IV. Order ed by Bishop Quintana. 14:47:43 50 mcg FENTANYL given in lab by Oscar Sibley, RN in Left Antecubital via Peripheral IV. O rdered by Bishop Quintana. 14:49:20 Access site was Radial Artery. A SHEATH, FR6 RADIAL PRELUDE EASE 11CM FR 6 was advanced into the Radial (right) using the Perc utaneous 14:49:35 technique. 14:50:02 3000 units HEPARIN given in lab by Oscar Sibley RN in Left Antecubital via Peripheral IV . Ordered by Bishop Quintana. 14:50:15 200 mcg NTG (IC) given in lab by Bishop Quintana via Intra-arterial. Ordered by Tita Quintana. A JR 5.0 INFINITI CATHETER FR 5 was advanced over a wire. OMNIPAQUE, 350 MG, 150ML 150ML was us ed for 14:51:43 injections. 14:51:48 HR=90 bpm, GRDW=954/78 mmhg, SpO2=91.0 %, Resp=15 B/min Recorded Pressure: LV, HR=88, Condition=Condition 1 14:53:02 (Left Ventricle) LV 95/0/1 Recorded Pressure: LV, Ao, HR=86, Condition=Condition 1 14:53:05 (Left Ventricle) LV 94/1/0, (Aorta) Ao 94/69/83 14:53:34 The RCA was injected and visualized at various angles. OMNIPAQUE, 350 MG, 150ML 150ML used . After removing the current catheter a JL 3.5 INFINITI CATHETER FR 5 was advanced over a WIRE, E XCHANGE 260CM 14:55:07 3MMJ 260CM. 14:56:13 The LCA was injected and visualized at various angles. OMNIPAQUE, 350 MG, 150ML 150ML used . 14:56:47 HR=67 bpm, WEPO=745/71 mmhg, SpO2=93 %, Resp=17 B/min 14:59:42 Catheter was removed 14:59:54 Case End Radial Compression Device Used. 12 mLs of air placed in BAND, RADIAL COMPRESSION TR SHORT 24 24 CM. Affected 15:00:14 hand ~O2 SATURATION~ % O2 saturation. 15:00:57 Cine recording checked. 15:01:44 HR=74 bpm, WAFB=757/80 mmhg, SpO2=93 %, Resp=19 B/min 15:03:28 No case complications noted. 15:03:31 Bedside Report will be given. Assessment: Final Case, HR=71 BPM, Rhythm=sr, EEGD=198/80 mmhg, Chest Pain=0 Right Pulses: Norris Ped=2, Femoral=2, Radial=2 15:03:34 Neurological: State=Alert, Ox3, DSOUZA Respiration: Resp=16 B/min, SpO2=93 % 15:06:43 TVQO=839/79 mmhg 15:10:30 Patient moved to bed 15:11:13 Bedside Report will be given. 15:11:19 Patient transported to [facility] 15:11:22 Vitals capture stopped. End Study - Contrast Media Used In Study Contrast Total Opened (mL) Total Used (mL) Total Wasted (mL) Omnipaque 30 30 0 End Study - Maximum Contrast Load Max Contrast Load (mL) 350.5 End Study - Radiation Exposure Fluoro Time (minutes) 1.1 End Study - Sheaths Sheaths Pulled By Sheath Hold Time (min) Paz Beltran End Study - Patient Disposition Complications Transferred To Interventional Outcome No Telemetry Bed No attempt made
--- NOTE | 2017-02-07 15:33 | MA ---
cc: ERNESTINE WEISS DATE: 02/07/2017 INDICATION Non-ST elevation AR/ventricular fibrillation arrest. METHOD The risks, benefits and alternatives were discussed with the patient. The patient understood and consented to the procedure. The patient was brought into the catheterization lab and was placed on the catheterization table. The right wrist was prepped and draped in a sterile fashion. The right wrist was anesthetized with 2% lidocaine. The right radial artery was cannulated and a 6-Syriac, 7 cm sheath was placed without difficulty. LEFT HEART CATHETERIZATION Intraventricular hemodynamics measured at 94/10 mmHg. CORONARY ANGIOGRAPHY 1. The left main coronary is angiographically normal. 2. The left anterior descending coronary has minor lumbar spine irregularities. There is a large diagonal branch with minor luminal irregularities. 3. The left circumflex is a codominant vessel. The obtuse marginal branch is widely patent. The very distal circumflex appears to have an occlusion without any collaterals. It is a less than 2 mm caliber size vessel. 4. The right coronary is a dominant vessel giving rise to a posterior descending branch. The right coronary is angiographically normal. CONCLUSIONS 1. Small distal circumflex coronary artery occlusion. 2. Normal left-sided filling pressures. PLAN The patient appears to have a small distal left circumflex occlusion, not really amenable to percutaneous intervention. The infarct looks already completed in a very small territory. This is likely the cause of the patient's ventricular arrest. I am going to consult electrophysiology for their opinion and whether the patient should undergo electrophysiology study given the malignant heart rhythm. MD HUE Fish/CORONA /3:09 PM /3:21 PM
--- NOTE | 2017-02-07 16:14 | ECHRPT ---
Indication: Chest Pain CONCLUSIONS The left ventricular systolic function is normal with an estimated ejection fraction in the range of 55-60%. Normal left ventricular size. Wall thickness is normal. No regional wall motion abnormalities are present. BP: / HR: Rhythm: MEASUREMENTS (Male / Female) Normal Values Technical Quality: 2D ECHO LVOT Diameter 1.9 cm LV Ejection Fraction MOD 4C 59.6 % LV Ejection Fraction 4C AL 60.6 % M-MODE AV Cusp Separation MM 1.8 cm DOPPLER AV Peak Velocity 124.0 cm/s AV Peak Gradient 6.2 mmHg LVOT Peak Velocity 85.9 cm/s LVOT Peak Gradient 3.0 mmHg AV Area Cont Eq pk 2.0 cm MV Area PHT 1.9 cm Mitral E Point Velocity 40.5 cm/s Mitral A Point Velocity 51.3 cm/s Mitral E to A Ratio 0.8 LV E' Lateral Velocity 9.5 cm/s Mitral E to LV E' Lateral Ratio 4.3 LV E' Septal Velocity 8.2 cm/s Mitral E to LV E' Septal Ratio 4.9 FINDINGS LEFT VENTRICLE The left ventricular systolic function is normal with an estimated ejection fraction in the range of 55-60%. Normal left ventricular size. Wall thickness is normal. No regional wall motion abnormalities are present. RIGHT VENTRICLE Normal right ventricular size and systolic function. LEFT ATRIUM The left atrial size is normal. RIGHT ATRIUM The right atrial size is normal. ATRIAL SEPTUM Normal atrial septal thickness without atrial level shunting by limited color doppler interrogation. AORTA The aortic root and proximal ascending aorta are normal in size on limited imaging. MITRAL VALVE Structurally normal mitral valve. No mitral valve stenosis or regurgitation. AORTIC VALVE Trileaflet aortic valve. No aortic valve stenosis or regurgitation. TRICUSPID VALVE Structurally normal tricuspid valve. No tricuspid valve stenosis or regurgitation. PULMONARY VALVE The pulmonary valve is not well visualized. VESSELS The inferior vena cava is normal in size. PERICARDIUM No pericardial effusion. Bishop Quintana MD, FACC (Electronically Signed) Final Date:07 February 2017 16:13
[2017-02-07] MEDS ORDERED: IOHEXOL 350 MG/ML 50 ML BTL (for Cath Lab) OTHER ONE (16:22)
--- NOTE | 2017-02-07 21:33 | MB ---
cc: HECTOR ACUÑA M.D. DATE OF CONSULTATION: 02/07/2017 REASON FOR CONSULTATION: Sudden , ventricular fibrillation. HISTORY OF PRESENT ILLNESS: Mr. Henry is a 61-year-old gentleman admitted on the 05 of February due to syncopal episode. He was at home. He refers some dizziness and near syncope. The called . When on site, he was found with ventricular fibrillation. He was cardioverted, brought to the emergency room. He was cathed by Dr. Quintana today, that indicated nonocclusive disease and a normal ejection fraction. I was consulted for evaluation and management. The chart was reviewed. The patient was evaluated. I discussed the case with Dr. Quintana as well as the patient. ALLERGIES: NONE. SOCIAL HISTORY The gentleman did smoke, drinks at least two alcoholic beverages a day. FAMILY HISTORY Noncontributory to his current medical condition. MEDICATIONS Mr. Henry is currently on: 1. Aspirin 325 mg a day. 2. He is on heparin. 3. Temazepam REVIEW OF SYSTEMS The patient refers no chest pain or chest discomfort, no vomiting, no fever. PHYSICAL EXAMINATION: Alert, fully oriented, in bed. VITAL SIGNS: Blood pressure is 107/80, pulse 70, respiratory rate 18. LUNGS: Ventilated. CARDIOVASCULAR: S1-S2, regular, no gallop. ABDOMEN: Soft, no masses, no bruits. EXTREMITIES: Right arm immobilized due to recent left heart catheterization. LABORATORY DATA: Hemoglobin 16, white blood cells 8.3, potassium 4.0, creatinine 1.1, troponin 0.37. Magnesium is 2.2. INR is 1.0. Electrocardiogram: Sinus rhythm. Diffuse ST changes. No active ST, ST-T elevation. ASSESSMENT AND RECOMMENDATIONS Mr. Henry had an episode of sudden in ventricular fibrillation. 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 He has a normal ejection fraction. The gentleman will need a defibrillator for sudden for secondary prevention. The risks, the nature and the benefit of the procedure are clearly stated to him. Risks include pneumothorax, cardiac perforation, stroke and even . The gentleman is not sure what he wants to do at this point. I will see him in the morning for further conversation. MD CAROLINA Walton/[place] /8:07 PM /9:18 PM
[2017-02-08] VITALS (26 sets, daily range): BP systolic 90–118; BP diastolic 62–81; PULSE 64–106; RESP 16–17; TEMP 97.8–98.9; O2SAT 96–97
[2017-02-08 06:26] LABS: HEMATOCRIT 43.4 % (39.0-51.0); MEAN CELL VOLUME 104.3 FL (80.0-100.0); MEAN CORPUSCULAR HEMOGLOBIN 36.3 PG (27.0-34.0); MEAN CORPUSCULAR HGB CONC 34.8 % (32.0-36.0); PLATELET COUNT 136 TH/MM3 (150-450); RED BLOOD COUNT 4.16 MIL/MM3 (4.50-5.90); RED CELL DISTRIBUTION WIDTH 13.5 % (11.6-17.2); REVIEW FLAG FINAL; WHITE BLOOD COUNT 6.6 TH/MM3 (4.0-11.0)
--- NOTE | 2017-02-08 07:56 | PD.CARD.PN ---
Subjective Subjective Remarks Chest pain improved. No shortness breath, or palpitations. Patient states electrophysiology wants to place a pacemaker tomorrow. (Lonnie Torres) Objective Medications Current Medications Medications (Trade) Dose Ordered Sig/Davon Route Start Time Stop Time Status Last Admin (NS Flush) 2 ml UNSCH PRN IV FLUSH 02/05/17 13:00 (NS Flush) 2 ml BID IV FLUSH 02/05/17 21:00 02/07/17 20:34 (Tylenol) 650 mg Q4H PRN PO 02/05/17 13:00 (Zofran Inj) 4 mg Q6H PRN IVP 02/05/17 13:00 (Restoril) 15 mg HS PRN PO 02/05/17 13:00 (Narcan Inj) 0.4 mg UNSCH PRN IV PUSH 02/05/17 13:00 (Ilana-Colace) 1 tab BID PO 02/05/17 21:00 02/07/17 20:34 (Milk Of Magnesia Liq) 30 ml Q12H PRN PO 02/05/17 13:00 (Senokot) 17.2 mg Q12H PRN PO 02/05/17 13:00 (Dulcolax Supp) 10 mg DAILY PRN RECTAL 02/05/17 13:00 (Lactulose Liq) 30 ml DAILY PRN PO 02/05/17 13:00 (Aspirin) 325 mg DAILY PO 02/06/17 09:00 02/07/17 08:45 (Morphine Inj) 2 mg Q4H PRN IV PUSH 02/05/17 13:00 (Xanax) 0.25 mg Q8H PRN PO 02/05/17 13:00 02/06/17 19:39 (Pill Splitter) 1 ea UNSCH PRN OTHER 02/05/17 13:15 (Flexeril) 10 mg Q8H PRN PO 02/07/17 21:00 02/07/17 20:34 Vital Signs / I&O Vital Signs Date Time Temp Pulse Resp B/P (MAP) Pulse Ox O2 Delivery O2 Flow Rate FiO2 02/08/17 06:05 74 02/08/17 05:41 73 02/08/17 04:54 73 02/08/17 03:43 64 02/08/17 03:25 98.0 74 17 93/63 (73) 97 02/08/17 02:25 70 02/08/17 01:38 68 02/08/17 00:15 70 02/07/17 23:30 72 02/07/17 23:10 97.8 93 16 97/68 (78) 96 02/07/17 22:15 70 02/07/17 21:00 72 02/07/17 20:15 76 02/07/17 20:15 97 Room Air 02/07/17 19:30 98.1 84 16 113/77 (89) 97 02/07/17 19:25 84 02/07/17 19:03 21 02/07/17 18:01 80 02/07/17 17:00 74 02/07/17 16:00 68 02/07/17 15:30 98.6 69 18 107/80 (89) 95 02/07/17 15:00 65 02/07/17 14:00 70 02/07/17 13:01 70 02/07/17 12:00 68 02/07/17 11:15 98.6 73 18 112/82 (92) 96 02/07/17 11:00 70 02/07/17 10:01 58 02/07/17 09:00 68 02/07/17 08:45 97 Room Air 02/07/17 08:45 98.0 68 18 116/82 (93) 97 02/07/17 08:00 66 I/O 02/07/17 02/07/17 02/07/17 02/08/17 02/08/17 02/08/17 07:00 15:00 23:00 07:00 15:00 23:00 Intake Total 110 ml 720 ml 360 ml Output Total 600 ml 450 ml 1 ml Balance -490 ml 270 ml 359 ml Intake Oral 720 ml 360 ml IV Total 110 ml Output Urine Total 600 ml 450 ml 1 ml # Voids 2 # Bowel Movements 0 Physical Exam GENERAL: Well-developed well-nourished. In no acute distress. NECK: No carotid bruits. No JVD. CARDIOVASCULAR: Regular rate and rhythm. No murmur appreciated. RESPIRATORY: No accessory muscle use. Clear to auscultation. Breath sounds equal bilaterally. MUSCULOSKELETAL: No clubbing or cyanosis. No edema. NEUROLOGICAL: Awake and alert. Normal speech. Laboratory Laboratory Tests Test 02/08/17 05:09 White Blood Count 6.6 TH/MM3 Red Blood Count 4.16 MIL/MM3 Hemoglobin 15.1 GM/DL Hematocrit 43.4 % Mean Corpuscular Volume 104.3 FL Mean Corpuscular Hemoglobin 36.3 PG Mean Corpuscular Hemoglobin Concent 34.8 % Red Cell Distribution Width 13.5 % Platelet Count 136 TH/MM3 Mean Platelet Volume 9.9 FL Imaging Last Impressions Chest X-Ray 02/05/17 0953 Signed Impressions: Service Date/Time: Tuesday, February 05, 2017 10:10 - CONCLUSION: 1. No acute cardiopulmonary disease. Tony Gallo MD (Lonnie Torres) Assessment and Plan Assessment and Plan 61-year-old male with a past medical history depression who presented with chest pain and V. fib status post defibrillation in the field NSTEMI: EKG with no ischemic changes. Troponins 0.02, 0.70, 0.37. Cardiac catheterization 02/07 showed small distal circumflex coronary artery occlusion. Aspirin. V. fib s/p defibrillation: Currently sinus. Electrophysiology consulted, recommends defibrillator. (Lonnie Torres) Assessment and Plan mgt per EP will sign off Dr. Grullon to resume remainder of care thank you (Bishop Quintana MD) Lonnie Torres Feb 08, 2017 07:56 Bishop Quintana MD Feb 08, 2017 08:51
[2017-02-08] MEDS: SODIUM CHLORIDE 0.9% FLUSH 10 ML FLUSH IV FLUSH SCH ×2 (08:26→20:00)
[2017-02-08] MEDS: ASPIRIN 325 MG TAB PO SCH (08:26)
[2017-02-08] MEDS: DOCUSATE SODIUM 50 MG/SENNA 8.6 MG TAB PO SCH ×2 (08:26→20:00)
[2017-02-08] MEDS: CYCLOBENZAPRINE HCL 10 MG TAB PO PRN (10:36)
--- NOTE | 2017-02-08 11:52 | HHI.PR ---
Subjective Remarks Feeling ok Objective Vital Signs Date Time Temp Pulse Resp B/P (MAP) Pulse Ox O2 Delivery O2 Flow Rate FiO2 02/08/17 06:05 74 02/08/17 05:41 73 02/08/17 04:54 73 02/08/17 03:43 64 02/08/17 03:25 98.0 74 17 93/63 (73) 97 02/08/17 02:25 70 02/08/17 01:38 68 02/08/17 00:15 70 02/07/17 23:30 72 02/07/17 23:10 97.8 93 16 97/68 (78) 96 02/07/17 22:15 70 02/07/17 21:00 72 02/07/17 20:15 76 02/07/17 20:15 97 Room Air 02/07/17 19:30 98.1 84 16 113/77 (89) 97 02/07/17 19:25 84 02/07/17 19:03 21 02/07/17 18:01 80 02/07/17 17:00 74 02/07/17 16:00 68 02/07/17 15:30 98.6 69 18 107/80 (89) 95 02/07/17 15:00 65 02/07/17 14:00 70 02/07/17 13:01 70 02/07/17 12:00 68 I/O 02/07/17 02/07/17 02/07/17 02/08/17 02/08/17 02/08/17 06:59 14:59 22:59 06:59 14:59 22:59 Intake Total 110 ml 720 ml 360 ml Output Total 600 ml 450 ml 1 ml Balance -490 ml 270 ml 359 ml Intake Oral 720 ml 360 ml IV Total 110 ml Output Urine Total 600 ml 450 ml 1 ml # Voids 2 # Bowel Movements 0 Result Diagram: 02/08/17 0509 02/06/17 0600 Imaging Alert, fully oriented lungs: ventilated Heart: S1, S2 regular, no gallop Abdomen: soft, no mass Ext: no edema Current Medications Medications (Trade) Dose Ordered Sig/Davon Route Start Time Stop Time Status Last Admin (NS Flush) 2 ml UNSCH PRN IV FLUSH 02/05/17 13:00 (NS Flush) 2 ml BID IV FLUSH 02/05/17 21:00 02/08/17 08:26 (Tylenol) 650 mg Q4H PRN PO 02/05/17 13:00 (Zofran Inj) 4 mg Q6H PRN IVP 02/05/17 13:00 (Restoril) 15 mg HS PRN PO 02/05/17 13:00 (Narcan Inj) 0.4 mg UNSCH PRN IV PUSH 02/05/17 13:00 (Ilana-Colace) 1 tab BID PO 02/05/17 21:00 02/08/17 08:26 (Milk Of Magnesia Liq) 30 ml Q12H PRN PO 02/05/17 13:00 (Senokot) 17.2 mg Q12H PRN PO 02/05/17 13:00 (Dulcolax Supp) 10 mg DAILY PRN RECTAL 02/05/17 13:00 (Lactulose Liq) 30 ml DAILY PRN PO 02/05/17 13:00 (Aspirin) 325 mg DAILY PO 02/06/17 09:00 02/08/17 08:26 (Morphine Inj) 2 mg Q4H PRN IV PUSH 02/05/17 13:00 (Xanax) 0.25 mg Q8H PRN PO 02/05/17 13:00 02/06/17 19:39 (Pill Splitter) 1 ea UNSCH PRN OTHER 02/05/17 13:15 (Flexeril) 10 mg Q8H PRN PO 02/07/17 21:00 02/08/17 10:36 Assessment and Plan Problem List: (1) Chest pain ICD Codes: R07.9 - Chest pain, unspecified Status: Acute Plan: No chest pain reported (2) Cardiac arrest with ventricular fibrillation ICD Codes: I46.9 - Cardiac arrest, cause unspecified; I49.01 - Ventricular fibrillation Status: Acute Plan: Stable. No VT nor VF recorded ICD implantation tomorrow Patient understand the risks, the nature and benefits of the procedure and agree to proceed. Problem Qualifiers (1) Chest pain: Qualified Codes: R07.9 - Chest pain, unspecified Fariba Grullon MD Feb 08, 2017 11:52
--- NOTE | 2017-02-08 11:57 | HHI.PR ---
Subjective Remarks in no acute distress. denies chest pain or sob. has mild pain to the left upper back. no other complaints. Objective Vitals Vital Signs Date Time Temp Pulse Resp B/P (MAP) Pulse Ox O2 Delivery O2 Flow Rate FiO2 02/08/17 06:05 74 02/08/17 05:41 73 02/08/17 04:54 73 02/08/17 03:43 64 02/08/17 03:25 98.0 74 17 93/63 (73) 97 02/08/17 02:25 70 02/08/17 01:38 68 02/08/17 00:15 70 02/07/17 23:30 72 02/07/17 23:10 97.8 93 16 97/68 (78) 96 02/07/17 22:15 70 02/07/17 21:00 72 02/07/17 20:15 76 02/07/17 20:15 97 Room Air 02/07/17 19:30 98.1 84 16 113/77 (89) 97 02/07/17 19:25 84 02/07/17 19:03 21 02/07/17 18:01 80 02/07/17 17:00 74 02/07/17 16:00 68 02/07/17 15:30 98.6 69 18 107/80 (89) 95 02/07/17 15:00 65 02/07/17 14:00 70 02/07/17 13:01 70 02/07/17 12:00 68 I/O 02/07/17 02/07/17 02/07/17 02/08/17 02/08/17 02/08/17 07:00 15:00 23:00 07:00 15:00 23:00 Intake Total 110 ml 720 ml 360 ml Output Total 600 ml 450 ml 1 ml Balance -490 ml 270 ml 359 ml Intake Oral 720 ml 360 ml IV Total 110 ml Output Urine Total 600 ml 450 ml 1 ml # Voids 2 # Bowel Movements 0 Result Diagram: 02/08/17 0509 02/06/17 0600 Imaging Last Impressions Chest X-Ray 02/05/17 0947 Signed Impressions: Service Date/Time: Sunday, February 05, 2017 10:10 - CONCLUSION: 1. No acute cardiopulmonary disease. Tony Gallo MD Objective Remarks GENERAL: This is a well-nourished, well-developed patient, in no apparent distress. CARDIOVASCULAR: Regular rate and regular rhythm without murmurs, gallops, or rubs. RESPIRATORY: Clear to auscultation. Breath sounds equal bilaterally. No wheezes , rales, or rhonchi. GASTROINTESTINAL: Abdomen soft, non-tender, nondistended. Normal, active bowel sounds MUSCULOSKELETAL: Extremities without clubbing, cyanosis, or edema. NEURO: Alert & Oriented x4 to person, place, time, situation. Moves all ext x4 Procedures cardiac catheterization. Medications and IVs Inpatient Medications Acetaminophen (Tylenol) 650 mg Q4H PRN PO TEMP > 100.4; Start 02/05/17 at 13:00 Alprazolam (Xanax) 0.25 mg Q8H PRN PO anxiety Last administered on 02/06/17 19:39; Start 02/05/17 at 13:00 Aspirin (Aspirin) 325 mg DAILY PO Last administered on 02/08/17 08:26; Start 02/06/17 at 09:00 Bacitracin (Bacitracin Oint Packet) 0.9 gm ONCE ONCE TOP ; Start 02/07/17 at 15:15; Stop 02/07/17 at 15:16; Status DC Bisacodyl (Dulcolax Supp) 10 mg DAILY PRN RECTAL SEVERE CONSITIPATION; Start 02/05/17 at 13:00 Cyclobenzaprine HCl (Flexeril) 10 mg Q8H PRN PO muscle relaxer Last administered on 02/08/17 10:36; Start 02/07/17 at 21:00 Heparin Sodium (Porcine) (Heparin Inj) 2,500 units UNSCH PRN IV APTT 25 TO 39 Last administered on 02/06/17 01:32; Start 02/05/17 at 16:00; Stop 02/07/17 at 15:09; Status DC Heparin Sodium/ Dextrose 250 ml @ 8 mls/hr TITRATE PRN IV Coagulation Management Last administered on 02/07/17 08:54; Start 02/05/17 at 10:00; Stop 02/07/17 at 15:09; Status DC Lactulose (Lactulose Liq) 30 ml DAILY PRN PO SEVERE CONSITIPATION; Start at 13:00 Magnesium Hydroxide (Milk Of Magnesia Liq) 30 ml Q12H PRN PO Mild constipation ; Start 02/05/17 at 13:00 Miscellaneous (Pill Splitter) 1 ea UNSCH PRN OTHER SEE LABEL COMMENTS; Start 02/05/17 at 13:15 Miscellaneous Information 1 ONCE ONCE XX ; Start 02/07/17 at 15:15; Stop 01/14 at 15:16; Status DC Morphine Sulfate (Morphine Inj) 2 mg Q4H PRN IV PUSH chest pain ; Start at 13:00 Naloxone HCl (Narcan Inj) 0.4 mg UNSCH PRN IV PUSH SEE LABEL COMMENTS; Start 02/05/17 at 13:00 Ondansetron HCl (Zofran Inj) 4 mg Q6H PRN IVP NAUSEA OR VOMITING; Start at 13:00 Senna/Docusate Sodium (Ilana-Colace) 1 tab BID PO Last administered on 08:26; Start 02/05/17 at 21:00 Sennosides (Senokot) 17.2 mg Q12H PRN PO Moderate constipation; Start 02/05/17 at 13:00 Sodium Chloride (NS Flush) 2 ml BID IV FLUSH Last administered on 02/08/17 08 :26; Start 02/05/17 at 21:00 Temazepam (Restoril) 15 mg HS PRN PO INSOMNIA; Start 02/05/17 at 13:00 A/P Assessment and Plan A/P Chest pain: Patient is currently stable. EKG with no ischemic changes. Troponin 0.02 --> 0.7 --> 0.37 . s/p cardiac catheterization; 1. Small distal circumflex coronary artery occlusion. 2. Normal left-sided filling pressures. continue aspirin- lipid panel in am. V. fib s/p defibrillation: Currently sinus. Likely ischemic driven- plan for AICD placement tomorrow- per . MARY: Cr 1.4 on admission. Monitor kidney function. Cr improving. Muscle spasm: Flexeril prn Depression/anxiety: Restart home meds. Give xanax prn for anxiety Tobacco use 1PPD. Counselled. Xanax for withdrawals DVT ppx SCD/TEDs on heparin drip Discharge Planning dc home with [facility] when cleared by cardiology; for AICD placement tomorrow. Margo Nunez MD Feb 08, 2017 11:56
--- NOTE | 2017-02-08 11:59 | HHI.FF ---
Face to Face Verification Diagnosis: (1) Cardiac arrest with ventricular fibrillation Home Health Nursing Order: Medical education Signs/symptoms of disease process Medication education-adverse effect Nursing assessment with vital signs I have seen patient Musa Henry on 02/08/17. My clinical findings support the need for the requested home health care services because: Patient has SOB I certify that my clinical findings support that this patient is homebound because: Poor cardiac reserve Margo Nunez MD Feb 08, 2017 11:59
[2017-02-08] MEDS ORDERED: VANCOMYCIN INJ 1,000 MG in SODIUM CHLOR 0.9% 250 ML INJ 250 ML IV SCH (12:00)
[2017-02-08] MEDS ORDERED: POVIDONE IODINE 5% (ANTISEPSIS KIT) 4 APPLICATIONS EACH NARE SCH (12:00)
[2017-02-08] MEDS ORDERED: ceFAZolin 2 GM PREMIX 50 ML IV SCH (12:00)
[2017-02-08] MEDS ORDERED: MUPIROCIN 2% OINT 1 APPLIC/GM SYR NASAL SCH (12:00)
[2017-02-08] MEDS ORDERED: CHLORHEXIDINE GLUCONATE 2 % 1 PACK (2 CLOTHS) TOP SCH (12:00)
[2017-02-08] MEDS: ALPRAZolam 0.25 MG TAB PO PRN (20:00)
[2017-02-08 22:19] LABS: HEMOGLOBIN A1a 1.3 %; HEMOGLOBIN A1b 1.6 %; HEMOGLOBIN Ao 84.5 %; HEMOGLOBIN LA1C 2.2 %
[2017-02-09] VITALS (20 sets, daily range): BP systolic 90–127; BP diastolic 60–87; PULSE 59–84; RESP 18; TEMP 97–97.7; O2SAT 97–98
[2017-02-09] MEDS ORDERED: METOPROLOL TARTRATE 25 MG TAB PO PRN (02:45)
[2017-02-09] MEDS ORDERED: SODIUM CHLORID 0.9% 500 ML IV PRN (02:45)
[2017-02-09] MEDS ORDERED: LACTATED RINGER'S 1000 ML IV PRN (02:45)
[2017-02-09] MEDS ORDERED: POVIDONE IODINE 5% (ANTISEPSIS KIT) 4 APPLICATIONS EACH NARE PRN (02:45)
[2017-02-09] MEDS ORDERED: CHLORHEXIDINE GLUCONATE 2 % 1 PACK (2 CLOTHS) TOPICAL PRN (02:45)
[2017-02-09] MEDS ORDERED: LIDOCAINE HCL 2% 50 ML VIAL ONE (06:56)
[2017-02-09] MEDS ORDERED: VANCOMYCIN HCL 1000 MG VIAL ONE (06:57)
[2017-02-09] MEDS ORDERED: ceFAZolin INJ 1,000 MG VIAL ONE (06:57)
[2017-02-09] MEDS ORDERED: VANCOMYCIN 500 MG VIAL ONE (06:57)
[2017-02-09] MEDS ORDERED: SODIUM CHLOR 0.9% 250 ML INJ 250 ML ONE (06:57)
--- NOTE | 2017-02-09 08:08 | PD.CARD ---
SINGLE CHAMBER DEFIB IMPLANT PROCEDURE DATE: Feb 09, 2017 Prevention: Secondary Single Chamber Defib Implant PROCEDURE: Single chamber defibrillator implantation and device testing. INDICATIONS: Mr. Henry is a 61 -year-old male with episodes of ventricular fibrillation, sudden cardiac who undergo defibrillator implantation for sudden secondary prevention. The risks, the nature and the benefit of the procedure are clearly stated to him . Risks include pneumothorax, cardiac perforation, stroke and even . He understood and agreed to proceed. PROCEDURE: After written, informed consent was obtained, the patient was brought to the EP Lab where he was prepped and draped in the sterile fashion. Conscious sedation was initiated and maintained throughout the procedure by anesthesiologist. Once sedation was verified, the left infraclavicular area was anesthetized with 2% Xylocaine. Using modified Seldinger technique, the left subclavian vein was cannulated on one occasion and one guide wire was advanced. Then, using #11 blade scalpel, a 3-cm incision was made two fingerbreadths below left clavicle. This incision was then taken down to the deep fascial layer using Bovie cautery and blunt dissection. Into the inferomedial direction, a device pocket was dissected, then the wire was dissected into the pocket. A 2-0 Vicryl suture was placed around the wires to prevent bleeding. At this point, over the wire, the 9- Gibraltarian dilator and introducer was advanced. As dilator and wire were removed, an active fixation right ventricular pacing, sensing and defibrillatory lead was advanced. After adequate pacing and sensing thresholds were obtained, the lead was secured in the pocket with #2 Ethibond suture. At that point, the pocket was copiously irrigated with antibiotic solution. The leads were connected to the generator and placed into the pocket. I did proceed with NIPS. Initial induction consisted of T-wave shock which induced ventricular fibrillation which was adequately detected and treated by the ICD generator, delivering a 31-joule defibrillatory shock converting the patient back into sinus rhythm. Shocking impedance was 61 ohms, charge time 6.4 seconds. At that point NIPS was complete. I did proceed with wound closure. The deep fascial layer was approximated with 2-0 Vicryl suture in a continuous fashion. The subcutaneous layer was approximated with 2-0 Vicryl suture in a continuous fashion. The subcuticular layer was approximated with 2-0 Vicryl suture in a continuous fashion. Dermabond adhesive was applied to the wound, followed by a sterile pressure dressing. There was no complication. The patient tolerated procedure. Blood loss minimal. 1. Implanted Hardware: The implanted defibrillator generator is a [employer], model number D020, serial number [id number]. The right ventricular pacing, sensing and defibrillatory lead is a [employer] model number 0293 -64, serial number [id number]. 2. Thresholds: The right ventricular pacing threshold in the bipolar mode was 1.0 volts at 0.4 milliseconds, lead impedance 620 ohms and R-wave at 6.3 mV. The right ventricular defibrillatory threshold less than 31 joules shocking, impedance 61 ohms, charge time 6.4 seconds. 3. Settings: The device set in VVI 40 defibrillatory portion for two zones, one zone for ventricular tachycardia between 180 and 250 beats per minute. Initial therapy consists of one burst of ATP, one ramp, 81%, 10 pulse, 10 millisecond decremental, followed by 31 and all subsequent shocks at 41 joules defibrillatory shock, the second zone for ventricular fibrillation above 250 beats per minute, first therapy at 31 and all subsequent shocks at 41 joules defibrillatory shock. CONCLUSIONS: Successful defibrillator implantation and device testing. COMMENT AND RECOMMENDATIONS: The patient will be transferred to the telemetry unit, will be observed and when stable can be discharged home. Fariba Grullon MD Feb 09, 2017 08:08
[2017-02-09] MEDS ORDERED: BACITRACIN OINT 0.9 GM PKT TOP PRN (08:15)
[2017-02-09] MEDS ORDERED: ONDANSETRON HCL 4 MG/2 ML VIAL IV PUSH PRN (08:15)
[2017-02-09] MEDS ORDERED: ACETAMINOPHEN/CODEINE 300 MG/30 MG TAB PO PRN (08:15)
[2017-02-09] MEDS ORDERED: SODIUM CHLORIDE 0.9% FLUSH 10 ML FLUSH IV FLUSH PRN (08:15)
--- NOTE | 2017-02-09 08:33 | CATHPROC ---
[employer] HIS Report Study Information Study Number Admission Scheduled Start Study Start [id number] Feb 05 2017 12:16PM 02/08/2017 Feb 09 2017 6:41AM [place] Service Cardiac Pacer/ICD Admit Source Facility Department Other [facility] - Medical Coordinator Pesticide Use Physician and Clinical Staff Initial Fariba Falk Corporate Affairs Manager Oscar Sibley,DON Corporate Affairs Manager Olimpia Figueroa RN Other Anesthesia, SIZE PAINTER Scrub Robi Delgado,RT(R) Procedures Performed Procedure Lead Insertion Equipment Time Travel Med Surg Rn Description Size Mfg Part Number Used/Scraped [employer]/ EP DEFIBRILLATOR, DYNAGEN MINI 07:51 D020 Used PACER ICD VR [employer]/ EP 07:46 LEAD, ENDOTAK RELIANCE SG 0293 Used PACER DERMABOND, ADHESIVE SKIN [id number] 07:17 CORDIS/PACER * Used GLUE MINI *[id number] 07:17 [employer] SUTURE, STRIP PLUS 1/2" * Used *[id number] 07:17 [employer] PACER TRAORE, LIMB * 2530 *[id number] Used [id number] 07:17 [employer] PACER PACK, PACER CUSTOM * Used *[id number] 07:46 [facility] PACER SAFE SHEATH, FR9, 13CM FR 9 [id number] Used 07:13 Needle Sponge Count 2 22 Used 07:13 Needle Sponge Count 20 200 Used 07:12 Needle Sponge Count 3 3 Used SUTURE, 0 ETHIBOND [CT1] (CX21D), 8pk SUTURE, 2-0 VICRYL [CT1] ([id number]) SUTURE, 2-0 VICRYL [CT1] (TPW694F) [id number] 07:17 [employer],WARM AIR CCL * Used *[id number] [facility] PAD, ELECTROSURGICAL 07:17 * [id number] *[id number] Used [employer]GICAL [employer]OUND[employer] ORANGE [id number] 07:17 [employer]. / * Used *[id number] Equipment Model, Serial, Lot Number and Expiration Data Description Model Number Serial Number Lot Number Expiration Date DEFIBRILLATOR, DYNAGEN MINI D020 [id number] 12-30-2018 ICD VR LEAD, ENDOTAK RELIANCE SG 0293 64cm [id number] 01-08-2019 History: Allergies Allergy Reaction No Known Allergies History: Risk Factors Family History of Hypertension Dyslipidemia Previous [place] Previous Heart Failure Premature CAD No No Yes No No Prior Valve Prior PCI Prior CABG Surgery No No No Cerebrovascular Peripheral Artery Chronic Lung On Dialysis Diabetes Disease Disease Disease No No No No No History: Symptoms/Diagnosis Selection Items Chest pain SOB History: Stress Tests Stress or Imaging Studies Performed No History: Other Disease Selection Items Depression History: Other Current Smoker Method Packs a Day Years Used Pack Years Yes Cigarettes 1 30 30 Labs Hgb (g/dl) Hct (%) WBC (l/cumm) Platelets (thousands) 11.60-17.00 35.00-51.00 4.00-11.00 150.00-450.00 15.0 43 6.6 136 Glucose (mg/dl) BUN (mg/dl) Creatinine (mg/dl) BUN:Creatinine (1:x) 74.00-106.00 7.00-18.00 0.50-1.30 10.00-20.00 160 13 1.0 13 Na (meq/l) K (meq/l) 136.00-145.00 3.50-5.10 141 4 INR (PTT:PT) 0.90-1.10 1 Troponin I (ng/ml) 0.02-0.05 0.37 Medication Medication Total Dose (Bolus/Oral) Medication Total Dosage/Unit 2% XYLOCAINE 50 mL Medications (Bolus/Oral) Medication Time Given Dosage/Unit Administered By Reason 2% XYLOCAINE 02/09/2017 7:41:43 AM 50 mL Fariba Grullon 50 mL 2% XYLOCAINE given in lab by Fariba Grullon via Subcutaneous. Ordered by Fariba Grullon. Medication (Drip) Medication Time Given Dosage/Unit Concentration/Unit Diluent (ml) Solution ANCEF 02/09/2017 7:33:18 AM 1 g 1 g ANCEF given in lab by Anesthesia, SIZE PAINTER in Right Antecubital via Peripheral IV. Ordered by Fariba Grullon. VANCOMYCIN DRIP 02/09/2017 7:33:39 AM 1 g 1 g VANCOMYCIN DRIP given in lab by Anesthesia, SIZE PAINTER in Right Antecubital via Peripheral IV. Ordered by Fariba Grullon. Initial Case Assessment Cardiovascular HR Rhythm NIBP Chest Pain 78 sr 115/80 0 Neurological State Oriented to time-place- Alert Moves all extremities person Respiration - General Respiration Rate SpO2 (%) (B/min) 16 98 Final Case Assessment Cardiovascular HR Rhythm NIBP Chest Pain 84 sr 93/64 0 Neurological State Oriented to time-place- Alert Moves all extremities person Respiration - General Respiration Rate SpO2 (%) (B/min) 11 95 Chronological Log Time Study Chronological Log 6:43:03 Patient arrived via Bed. 6:43:04 Patient Name, D.O.B, / Armband Verified By R.N. 6:43:05 Consent signed by the physician and the patient and verified by the Medical Coordinator Pesticide Use staff. 6:43:06 Pre-op and post- op instructions given; patient acknowledges understanding of instructions. 6:43:07 Verbal Stimulation=2 Physical Stimulation=2 Airway=2 Respiration=2 TOTAL=8. (0=absent, 1=li mited, 2=present) 6:43:17 Patient has been NPO for More than 6Hrs. 6:43:19 Skin Breakdown- none per pt 6:43:24 Patient Warmer Placed on the Table. 6:43:25 Disposable Defibrillator Pads Placed On Patient. 6:43:28 Alee Prominences Protected 6:43:29 A # 20 IV was noted in the Antecubital (right). Grade = 0 0.9ns kvo 6:43:31 A # 18 IV was noted in the Antecubital (left). Grade = 0 0.9ns kvo connected 6:44:06 History and physical on the chart. Assessment: Initial Case, HR=78 BPM, Rhythm=sr, JOFY=917/80 mmhg, Chest Pain=0 6:54:58 Neurological: State=Alert, Ox3, DSOUZA Respiration: Resp=16 B/min, SpO2=98 % 7:02:33 Anesthesia at bedside. Assumes care of patient. 7:05:24 Table restraints applied according to hospital policy 7:05:40 2% CHLORHEXIDINE GLUCONATE WASH AND NASAL SWIPE DONE PRIOR TO PROCEDURE. 7:05:47 Bovie ground pad applied to: right thigh 7:06:03 Upper Chest Prepped Times Two. 7:10:56 paged First Sponge And Instrument Count Done by Robi Delgado, RT(R). 7:11:47 Hypo's: 3, Sponges: 20, Bovie/scratch: 2 Sutures: 10, Blades: 1, Instruments: 26, Syveck Patches: 0 Verified with Brayan Sibley RN 7:11:57 HR=77 bpm, SpO2=98 % 7:20:28 MD notified again 7:23:37 Reference ECG taken 7:24:24 HR=77 bpm, SpO2=99 % 7:25:30 Anesthesia at bedside. SHALOM Mujica Assumes care of patient. 7:33:18 1 g ANCEF given in lab by Anesthesia, SIZE PAINTER in Right Antecubital via Peripheral IV. Ordered Fariba Ennis. 1 g VANCOMYCIN DRIP given in lab by Anesthesia, SIZE PAINTER in Right Antecubital via Peripheral IV. Ord ered by Mitchel 7:33:39 Fariba. 7:37:27 MD arrived. Time Out. Correct patient, procedure, procedure equipment, site and side verified with physician present. Time 7:40:07 concurred by MD, individual staff and SIZE PAINTER. Time Out #2 - Consents verified, patient in correct position, all results are labled and display ed, safety precautions 7:40:20 taken, antibiotics administered. Time out concurred by MD, individual staff and SIZE PAINTER in procedur e 7:40:58 Case Start 7:41:43 50 mL 2% XYLOCAINE given in lab by Fariba Grullon via Subcutaneous. Ordered by Fariba Grullon. 7:43:05 Vascular access was obtained in the Subclav. Vein (Lft. 7:43:13 Wire inserted 7:43:16 Surgical Incision Made. 7:45:17 A SAFE SHEATH, FR9, 13CM FR 9 was advanced into the Fem Vein (right) using the Percutaneous technique. 7:45:43 A LEAD, ENDOTAK RELIANCE SG was inserted and positioned in the RV. 7:48:15 Lead placement verified under fluoroscopy 7:48:17 The RV lead impedance and threshold being tested. 7:49:58 The RV lead was sutured to the fascia. 7:50:09 Pocket flushed with antibiotic solution 7:50:32 A DEFIBRILLATOR, DYNAGEN MINI ICD VR was connected and placed in the pocket. 7:52:28 A Two Joul synchronized DFT was performed. 7:53:03 The DFT was Success at 31 Joules, 67 Ohms lead impedance and 6400 ms charge time on Second s hock Second Sponge And Instrument Count Done by Robi Delgado, RT(R). 7:55:21 Hypo's: 3, Sponges: 20, Bovie/scratch: 2 Sutures: ~SUTURE~, Blades: 1, Instruments: 26, Syveck Patches: 0 Verified by Keeley Figueroa RN 7:56:33 HR=75 bpm, VKZO=970/68 mmhg, SpO2=94 %, Resp=9 B/min 7:59:14 The pocket was closed. 7:59:16 Case End The Final Sponge And Instrument Count Done by Robi Delgado, RT(R). 7:59:20 Hypo's: 3, Sponges: 20, Bovie/scratch: 2 Sutures: 10, Blades: 1, Instruments: 26, Syveck Patches: 0 8:02:41 Dermabond, Steri-strips and a sterile dressing applied to site. 8:03:11 Implant Procedure was performed. 8:03:26 A ICD Implant . (Single) 8:03:47 A sling was placed on the affected arm. Assessment: Final Case, HR=84 BPM, Rhythm=sr, NIBP=93/64 mmhg, Chest Pain=0 8:03:55 Neurological: State=Alert, Ox3, DSOUZA Respiration: Resp=11 B/min, SpO2=95 % 8:03:59 No case complications noted. 8:04:00 Cine recording checked. 8:04:09 Implantable Device card placed in patient's chart. 8:10:28 Patient moved to bed 8:12:39 Patient transported to [facility] 8:12:44 Bedside Report will be given. End Study - Contrast Media Used In Study Contrast Total Opened (mL) Total Used (mL) Total Wasted (mL) Unspecified 0 0 0 End Study - Maximum Contrast Load Max Contrast Load (mL) 340.0 End Study - Radiation Exposure Fluoro Time (minutes) 1.4 End Study - Sheaths Sheaths Pulled By Sheath Hold Time (min) Fariba Grullon End Study - Patient Disposition Complications Transferred To Interventional Outcome No Telemetry Bed successful
[2017-02-09] MEDS: DOCUSATE SODIUM 50 MG/SENNA 8.6 MG TAB PO SCH ×2 (08:39→20:06)
[2017-02-09] MEDS: ALPRAZolam 0.25 MG TAB PO PRN (08:39)
[2017-02-09] MEDS: ASPIRIN 325 MG TAB PO SCH (08:41)
[2017-02-09] MEDS: SODIUM CHLORIDE 0.9% FLUSH 10 ML FLUSH IV FLUSH SCH ×2 (08:43→20:10)
[2017-02-09] MEDS ORDERED: SODIUM CHLORIDE 0.9% FLUSH 10 ML FLUSH IV FLUSH SCH (09:00)
--- NOTE | 2017-02-09 09:47 | RADRPT ---
EXAM DATE/TIME: 02/09/2017 09:10 [place] COMPARISON: CHEST SINGLE AP, February 05, 2017, 10:10. INDICATIONS : Post pacemaker placement. MEDICAL HISTORY : Smoker. SURGICAL HISTORY : None. ENCOUNTER: Subsequent ACUITY: 4 - 6 days PAIN SCORE: 0/10 LOCATION: Bilateral chest FINDINGS: Interval placement of single lead AICD device with lead projecting over the right ventricle. No signi ficant pneumothorax. Cardiomediastinal contours are stable. Remainder of exam is unchanged. CONCLUSION: 1. Single lead AICD device in place without pneumothorax. Tony Gallo MD on February 09, 2017 at 9:44 Board Certified Radiologist. This report was verified electronically.
--- NOTE | 2017-02-09 10:21 | HHI.PR ---
Subjective Remarks in no acute distress. denies sob. has mild discomfort at the site of the procedure. Objective Vitals Vital Signs Date Time Temp Pulse Resp B/P (MAP) Pulse Ox O2 Delivery O2 Flow Rate FiO2 02/09/17 08:30 97.7 72 18 127/87 (100) 02/09/17 06:02 70 02/09/17 05:00 72 02/09/17 04:54 97.6 72 91/66 (74) 98 02/09/17 04:00 84 02/09/17 03:00 71 02/09/17 02:00 70 02/09/17 01:00 68 02/09/17 00:00 74 02/08/17 23:00 98.1 75 90/62 (71) 96 02/08/17 23:00 76 02/08/17 22:00 76 02/08/17 21:00 76 02/08/17 20:00 Room Air 02/08/17 20:00 106 02/08/17 20:00 97.8 81 115/78 (90) 97 02/08/17 19:00 79 02/08/17 18:00 78 02/08/17 17:00 80 02/08/17 16:00 98.8 79 16 103/69 (80) 96 02/08/17 16:00 82 02/08/17 15:00 81 02/08/17 14:00 78 02/08/17 13:00 83 02/08/17 12:00 98.7 80 16 102/72 (82) 97 02/08/17 12:00 82 02/08/17 11:00 82 I/O 02/08/17 02/08/17 02/08/17 02/09/17 02/09/17 02/09/17 07:00 15:00 23:00 07:00 15:00 23:00 Intake Total 360 ml 840 ml 120 ml Output Total 1 ml Balance 359 ml 840 ml 120 ml Intake Oral 360 ml 840 ml 120 ml Output Urine Total 1 ml # Voids 3 3 Result Diagram: 02/08/17 0509 02/06/17 0600 Imaging Last Impressions Chest X-Ray 02/09/17 0000 Signed Impressions: Service Date/Time: Thursday, February 09, 2017 09:10 - CONCLUSION: 1. Single lead AICD device in place without pneumothorax. Tony Gallo MD Objective Remarks GENERAL: This is a well-nourished, well-developed patient, in no apparent distress. CARDIOVASCULAR: Regular rate and regular rhythm without murmurs, gallops, or rubs. RESPIRATORY: Clear to auscultation. Breath sounds equal bilaterally. No wheezes , rales, or rhonchi. GASTROINTESTINAL: Abdomen soft, non-tender, nondistended. Normal, active bowel sounds MUSCULOSKELETAL: Extremities without clubbing, cyanosis, or edema. NEURO: Alert & Oriented x4 to person, place, time, situation. Moves all ext x4 Procedures cardiac catheterization. defibrillator placement. Medications and IVs Inpatient Medications Acetaminophen (Tylenol) 650 mg Q4H PRN PO TEMP > 100.4; Start 02/05/17 at 13:00 Acetaminophen/ Codeine Phosphate (Tylenol-Codeine #3) 2 tab Q4H PRN PO PAIN SCALE 6 TO 10; Start 02/09/17 at 08:15 Alprazolam (Xanax) 0.25 mg Q8H PRN PO anxiety Last administered on 02/09/17 08:39; Start 02/05/17 at 13:00 Aspirin (Aspirin) 325 mg DAILY PO Last administered on 02/09/17 08:41; Start 02/06/17 at 09:00 Bacitracin (Bacitracin Oint Packet) 0.9 gm UNSCH PRN TOP SEE LABEL COMMENTS; Start 02/09/17 at 08:15 Bisacodyl (Dulcolax Supp) 10 mg DAILY PRN RECTAL SEVERE CONSITIPATION; Start 02/05/17 at 13:00 Cefazolin Sodium/ Dextrose 50 ml @ 100 mls/hr Q8H IV ; Start 02/09/17 at 15:00 ; Stop 02/10/17 at 07:29 Chlorhexidine Gluconate (Chlorhexidine 2% Cloth) 3 pack SPECIAL NEEDS CAREGIVER PRN TOPICAL SEE LABEL COMMENTS; Start 02/09/17 at 02:45; Stop 02/12/17 at 02:44 Cyclobenzaprine HCl (Flexeril) 10 mg Q8H PRN PO muscle relaxer Last administered on 02/08/17 10:36; Start 02/07/17 at 21:00 Heparin Sodium (Porcine) (Heparin Inj) 2,500 units UNSCH PRN IV APTT 25 TO 39 Last administered on 02/06/17t 01:32; Start 02/05/17 at 16:00; Stop 02/07/17 at 15:09; Status DC Heparin Sodium/ Dextrose 250 ml @ 8 mls/hr TITRATE PRN IV Coagulation Management Last administered on 02/07/17t 08:54; Start 02/05/17 at 10:00; Stop 02/07/17 at 15:09; Status DC Lactated Ringer's 1,000 ml @ 30 mls/hr Q24H PRN IV SEE LABEL COMMENTS; Start 02/09/17 at 02:45; Stop 02/12/17 at 02:44 Lactulose (Lactulose Liq) 30 ml DAILY PRN PO SEVERE CONSITIPATION; Start at 13:00 Magnesium Hydroxide (Milk Of Magnesia Liq) 30 ml Q12H PRN PO Mild constipation ; Start 02/05/17 at 13:00 Metoprolol Tartrate (Lopressor) 25 mg SPECIAL NEEDS CAREGIVER PRN PO SEE LABEL COMMENTS; Start 02/09/17 at 02:45; Stop 02/12/17 at 02:44 Miscellaneous (Pill Splitter) 1 ea UNSCH PRN OTHER SEE LABEL COMMENTS; Start 02/05/17 at 13:15 Miscellaneous Information 1 ONCE ONCE XX ; Start 02/07/17 at 15:15; Stop 01/14 at 15:16; Status DC Morphine Sulfate (Morphine Inj) 2 mg Q4H PRN IV PUSH chest pain ; Start at 13:00 Mupirocin (Bactroban Nasal 2% Oint) 1 applic SPECIAL NEEDS CAREGIVER NASAL ; Start 02/08/17 at 12:00; Stop 02/12/17 at 11:59 Naloxone HCl (Narcan Inj) 0.4 mg UNSCH PRN IV PUSH SEE LABEL COMMENTS; Start 02/05/17 at 13:00 Ondansetron HCl (Zofran Inj) 4 mg Q4H PRN IV PUSH NAUSEA; Start 02/09/17 at 08 :15 Povidone Iodine (Betadine 5% Antisepsis Kit) 1 applic SPECIAL NEEDS CAREGIVER PRN EACH NARE SEE LABEL COMMENTS; Start 02/09/17 at 02:45; Stop 02/12/17 at 02:44 Senna/Docusate Sodium (Ilana-Colace) 1 tab BID PO Last administered on t 08:39; Start 02/05/17 at 21:00 Sennosides (Senokot) 17.2 mg Q12H PRN PO Moderate constipation; Start 02/05/17 at 13:00 Sodium Chloride (NS Flush) 2 ml UNSCH PRN IV FLUSH FLUSH AFTER USING IV ACCESS ; Start 02/09/17 at 08:15; Stop 02/09/17 at 08:49; Status DC Temazepam (Restoril) 15 mg HS PRN PO SLEEP; Start 02/09/17 at 21:00 Vancomycin HCl 1000 mg/Sodium Chloride 250 ml @ 250 mls/hr SPECIAL NEEDS CAREGIVER IV ; Start 02/08/17 at 12:00; Stop 02/12/17 at 11:59 A/P Assessment and Plan A/P Chest pain: Patient is currently stable. EKG with no ischemic changes. Troponin 0.02 --> 0.7 --> 0.37 . s/p cardiac catheterization; 1. Small distal circumflex coronary artery occlusion. 2. Normal left-sided filling pressures. continue aspirin- lipid panel today pending. V. fib s/p defibrillation: Currently sinus. Likely ischemic driven- s/p defibrillator placement- cardiology followiing. MARY: Cr 1.4 on admission. Monitor kidney function. Cr improving. Muscle spasm: Flexeril prn Depression/anxiety: Restarted home meds. Give xanax prn for anxiety Tobacco use 1PPD. Counselled. Xanax for withdrawals DVT ppx SCD/TEDs [facility]charge [facility]- when cleared by cardiology. Margo Nunez MD Feb 09, 2017 10:21
[2017-02-09] MEDS ORDERED: NORC5TAB PO (10:26)
[2017-02-09] MEDS ORDERED: NICO21DI2 T-DERMAL (10:27)
[2017-02-09] MEDS: ACETAMINOPHEN/CODEINE 300 MG/30 MG TAB PO PRN ×3 (10:55→20:06)
[2017-02-09] MEDS ORDERED: DO NOT ADM ANY ANTICOAGULANT DRUGS PRN (11:15)
[2017-02-09] MEDS: ceFAZolin 2 GM PREMIX 50 ML IV SCH ×2 (14:27→22:19)
[2017-02-09] MEDS ORDERED: TEMAZEPAM 15 MG CAP PO PRN (21:00)
[2017-02-09] MEDS: MORPHINE SULFATE 2 MG/ML INJ IV PUSH PRN (22:19)
[2017-02-10] VITALS (11 sets, daily range): BP systolic 106–128; BP diastolic 77–90; PULSE 68–86; RESP 18; TEMP 97.5–97.9; O2SAT 98
[2017-02-10] MEDS: MORPHINE SULFATE 2 MG/ML INJ IV PUSH PRN (05:50)
[2017-02-10] MEDS: ceFAZolin 2 GM PREMIX 50 ML IV SCH (05:50)
[2017-02-10] MEDS: SODIUM CHLORIDE 0.9% FLUSH 10 ML FLUSH IV FLUSH SCH (09:00)
[2017-02-10] MEDS: DOCUSATE SODIUM 50 MG/SENNA 8.6 MG TAB PO SCH (09:00)
[2017-02-10] MEDS: ASPIRIN 325 MG TAB PO SCH (09:10)
[2017-02-10] MEDS ORDERED: TRAM50TA PO (10:41)
[2017-02-10] MEDS ORDERED: ASPI81TA23 PO (10:41)
[2017-02-10] MEDS ORDERED: CYCL10TA PO (10:41)
[2017-02-10] MEDS ORDERED: CEPH250T PO (10:41)
[2017-02-10] MEDS ORDERED: WALKER WHEELS/F1 MIS (10:43)
--- NOTE | 2017-02-10 10:44 | HHI.DS ---
Discharge Summary Admission Date Feb 05, 2017 at 12:16 Discharge Date: Feb 10, 2017 Admitting Diagnosis Chest pain, V. fib arrest (1) Cardiomyopathy ICD Code: I42.9 - Cardiomyopathy, unspecified (2) Cardiac arrest with ventricular fibrillation ICD Code: I46.9 - Cardiac arrest, cause unspecified; I49.01 - Ventricular fibrillation Status: Acute (3) CAD (coronary artery disease) ICD Code: I25.10 - Atherosclerotic heart disease of [place] coronary artery without angina pectoris (4) Chest pain ICD Code: R07.9 - Chest pain, unspecified Status: Acute Procedures cardiac catheterization. defibrillator placement. Brief History - From Admission 61-year-old male with a past medical history depression/anxiety who presented with chest pain and V. fib status post defibrillation in the field today. He had woken up in his normal state of health. He then developed some left back and left anterior chest pain. The pain was severe and lasted for a few hours with associated shortness of breath, nausea, and sweating. Paramedics were called and they found the patient pale, diaphoretic, and bradycardic in the 40s. Shortly thereafter he went into V. fib and he received defibrillation with conversion to sinus rhythm. EKG and telemetry monitoring showed sinus rhythm with occasional PACs, no acute ischemic changes. The patient does admit that he's been having episodes of left-sided chest pain with no associated symptoms, lasting for a few minutes, however he does ride a bike for exercise and has not had any previous exertional symptoms. He denies any history of heart disease. He denies any family history of heart disease. He does smoke and drink daily. Patient also reports neck pain and muscle tenderness, asking for muscle relaxant. CBC/BMP: 02/08/17 0509 02/06/17 0600 Significant Findings Laboratory Tests Test 02/08/17 05:09 02/09/17 09:00 Red Blood Count 4.16 MIL/MM3 (4.50-5.90) Mean Corpuscular Volume 104.3 FL (80.0-100.0) Mean Corpuscular Hemoglobin 36.3 PG (27.0-34.0) Platelet Count 136 TH/MM3 (150-450) Triglycerides Level 364 MG/DL (42-150) PE at Discharge GENERAL: This is a well-nourished, well-developed patient, in no apparent distress. CARDIOVASCULAR: Regular rate and regular rhythm without murmurs, gallops, or rubs. Left pacer site without bleeding, mild swelling and no erythema. RESPIRATORY: Clear to auscultation. Breath sounds equal bilaterally. No wheezes , rales, or rhonchi. GASTROINTESTINAL: Abdomen soft, non-tender, nondistended. Normal, active bowel sounds MUSCULOSKELETAL: Extremities without clubbing, cyanosis, or edema. NEURO: Alert & Oriented x4 to person, place, time, situation. Moves all ext x4 Pt update on day of discharge Patient states he is feeling well today. No chest pain. He does have some mild pain around the pacer site. Hospital Course Patient was admitted to the hospital and cardiology was consulted. He remained in normal sinus rhythm. He underwent left heart catheterization on February [address] hensley showing occlusion of the very distal circumflex artery which was not amenable to PCI. 2-D echocardiogram revealed normal left ventricular ejection fraction and no regional wall motion abnormalities. The patient underwent electrophysiology study and placement of AICD with right ventricular pacer on February [address] Grullon. Patient has remained stable overnight. Patient is to be discharged home. He is to stay on a baby aspirin daily. He is to follow-up with Dr. Mccarthy and Dr. hensley. Prophylactic antibiotics to prevent infection have been prescribed. Nicotine patches also been prescribed. Discharge follow-up care discussed in detail with the patient and his male friend at bedside. Pt Condition on Discharge: Stable Discharge Disposition: Disch w/ Home Health Serv Discharge Time: > 30 minutes Discharge Instructions DIET: Follow Instructions for: Heart Healthy Diet Activities you can perform: Regular-No Restrictions Follow up Referrals: Cardiology - 2 Weeks with Bishop Hensley MD Cardiology - 1 Week with Fariba Grullon MD PCP Follow-up New Medications: Aspirin DR (Aspirin EC) 81 Mg Tabdr 81 MG PO DAILY for coronary artery disease, #30 TAB 0 Refills Cephalexin (Cephalexin) 250 Mg Tab 250 MG PO Q6H for Infection, #30 TAB 0 Refills Nicotine Patch (Nicotine Patch) 21 Mg/24 Hr Patch 21 MG T-DERMAL DAILY for Smoking Cessation, #30 PATCH 0 Refills Tramadol (Tramadol) 50 Mg Tab 50 MG PO Q6H PRN for PAIN, #30 TAB 0 Refills Walker with Front Wheels (Walker with Front Wheels) 1 Mis Mis EA .ROUTE DIRECTED, #1 0 Refills Cyclobenzaprine (Flexeril) 10 Mg Tab 10 MG PO Q8H PRN for muscle relaxer , #6 TAB Continued Medications: Bupropion HCl ER 24 HR (Wellbutrin Xl 24 HR) 150 Mg Tab 150 MG PO DAILY for Control Depression, TAB 0 Refills Heaven Tena MD Feb 10, 2017 10:44
--- NOTE | 2017-02-10 16:03 | EKG ---
Date Performed: 02/10/2017 Time Performed: 03:13:48 PTAGE: 61 years EKG: Sinus rhythm Septal T wave changes are nonspecific Borderline ECG PREVIOUS TRACING : 02/05/2017 22.10 Since the prior tracing, the septal T-wave changes are new. Clinical correlation is advised. DOCTOR: Pratima Lemon Interpretating Date/Time 02/10/2017 16:02:17
== END 2017-02-10 11:42 | disposition home health service (06) | DRG 225 ==
LOC: NEPC 09:34 → NEDA 12:16 → HCIS 15:14
PROVIDERS: ADMIT Family Medicine; ATTEND Family Medicine
PROC: B2111ZZ Fluoroscopy of Multiple Coronary Arteries using Low Osmolar Contrast (ICD-10-PCS; 2017-02-07)
PROC: 4A023N7 Measurement of Cardiac Sampling and Pressure, Left Heart, Percutaneous Approach (ICD-10-PCS; 2017-02-07)
PROC: 02HK3KZ Insertion of Defibrillator Lead into Right Ventricle, Percutaneous Approach (ICD-10-PCS; 2017-02-09)
PROC: 4B02XTZ Measurement of Cardiac Defibrillator, External Approach (ICD-10-PCS; 2017-02-09)
PROC: 0JH608Z Insertion of Defibrillator Generator into Chest Subcutaneous Tissue and Fascia, Open Approach (ICD-10-PCS; principal; 2017-02-09 08:45)
DX: I49.01 Ventricular fibrillation (principal); N17.9 Acute kidney failure, unspecified; I42.9 Cardiomyopathy, unspecified; F32.9 Major depressive disorder, single episode, unspecified; F17.210 Nicotine dependence, cigarettes, uncomplicated; M62.838 Other muscle spasm; F41.9 Anxiety disorder, unspecified; I25.10 Atherosclerotic heart disease of native coronary artery without angina pectoris; M54.6 Pain in thoracic spine
CPT/HCPCS: 33249; 71010; 80048; 80053; 80061; 82550; 82552; 83036; 83735; 84484; 85025; 85027; 85610; 85730; 93005; 93306; 93458; 93641; 96365; 96366; 99152; 99153; C1722; C1769; C1777; C1893; J0690; J1644; J2250; J2270; J3010; J3370; J7050; Q9967